=== PATIENT | male | born 1950 | race Caucasian/White ===

== ENCOUNTER 2021-01-19 19:23 | Emergency (ER) | payer BC, MEDICARE ==
--- NOTE | 2021-01-19 20:12 | EDM.PDOC ---
ED HPI GENERAL MEDICAL PROBLEM - General Chief Complaint: General Stated Complaint: MEDICAL [facility]IA [facility] Time Seen by Provider: 01/19/21 20:03 Source of Information: Reports: Patient, EMS, RN Notes Reviewed History Limitations: Reports: No Limitations - History of Present Illness INITIAL COMMENTS - FREE TEXT/NARRATIVE: 70-year-old gentleman presents emergency department day via EMS services for increasing weakness. He states he been weak for the last couple months progressively getting worse over the last 2 days it is gotten significantly worse he fell today was unable to stand back up he was on the ground for for 5 hours. He denies any fevers nausea vomiting shortness of breath or chest pain. States he did have appointment with his primary care early in November states at lisandro t time he felt pretty good lab work was done and nothing was revealing at that time. - Related Data Allergies Allergy/AdvReac Type Severity Reaction Status Date / Time No Known Allergies Allergy Verified 01/19/21 19:39 Home Meds: Home Meds Aspirin [Low Dose Aspirin EC] 1 tab PO DAILY 04/08/17 [History] Fluticasone Propionate [Flovent] 2 spray ANNA DAILY 04/08/17 [History] Metoprolol Tartrate [Lopressor] 1 tab PO BID 04/08/17 [History] Triamcinolone Acetonide [Kenalog 0.1% Crm] 1 appful TOP TID 04/08/17 [History] allopurinoL [Zyloprim] 1 tab PO DAILY 04/08/17 [History] atorvaSTATin [Lipitor] 1 tab PO BEDTIME 04/08/17 [History] metFORMIN [Glucophage XR] 1 tab PO BID 04/08/17 [History] Albuterol Sulfate [Proair Hfa] 1 - 2 dose INH ASDIRECTED PRN 04/26/18 [History] Albuterol/Ipratropium [DuoNeb 3.0-0.5 MG/3 ML] 1 dose INH BID 04/26/18 [History] Budesonide [Pulmicort] 1 dose INH BID 04/26/18 [History] Furosemide [Lasix] 1 tab PO DAILY 04/26/18 [History] Aspirin [Adult Low Dose Aspirin EC] 81 mg PO DAILY 01/19/21 [History] Past Medical History HEENT History: Reports: Hard of Hearing, Impaired Vision Cardiovascular History: Reports: Heart Failure, High Cholesterol, Hypertension Respiratory History: Reports: COPD Musculoskeletal History: Reports: Gout Endocrine/Metabolic History: Reports: Diabetes, Type II, Obesity/BMI 30+ - Infectious Disease History Infectious Disease History: Reports: Chicken Pox, Measles, Mumps - Past Surgical History GI Surgical History: Reports: Cholecystectomy, Colonoscopy Social & Family History - Family History Family Medical History: No Pertinent Family History - Tobacco Use Tobacco Use Status *Q: Current Every Day Tobacco User Years of Tobacco use: 50 Packs/Tins Daily: 1 - Caffeine Use Caffeine Use: Reports: Coffee - Alcohol Use Days Per Week of Alcohol Use: 7 Number of Drinks Per Day: 3 Total Drinks Per Week: 21 - Recreational Drug Use Recreational Drug Use: No ED ROS GENERAL - Review of Systems Review Of Systems: See Below Constitutional: Reports: Malaise, Weakness, Fatigue, Other (Falling at home). Denies: Fever, Chills HEENT: Reports: No Symptoms Respiratory: Reports: No Symptoms Cardiovascular: Reports: No Symptoms GI/Abdominal: Reports: No Symptoms : Reports: No Symptoms Musculoskeletal: Reports: No Symptoms Skin: Reports: Wound Neurological: Reports: No Symptoms ED EXAM, GENERAL - Physical Exam Exam: See Below Free Text/Narrative:: Full range of motion of the right elbow radial pulses +2 there is a small skin tear approximately 1 cm in size appreciated on the left elbow Exam Limited By: No Limitations General Appearance: Alert, WD/WN, No Apparent Distress Throat/Mouth: Normal Inspection, Normal Lips, Normal Teeth, Normal Gums, Normal Oropharynx, Normal Voice, No Airway Compromise Head: Atraumatic, Normocephalic Neck: Normal Inspection, Supple, Non-Tender, Full Range of Motion Respiratory/Chest: No Respiratory Distress, Lungs Clear, No Accessory Muscle Use, Chest Non-Tender Cardiovascular: Regular Rate, Rhythm, No Murmur GI/Abdominal: Normal Bowel Sounds, Soft, Non-Tender Course - Vital Signs Last Recorded V/S: Last Vital Signs Temp 96.5 F L 01/19/21 19:43 Pulse 103 H 01/20/21 01:08 Resp 24 H 01/20/21 01:08 BP 121/63 01/20/21 01:08 Pulse Ox 93 L 01/20/21 01:08 - Orders/Labs/Meds Orders: Active Orders 24 hr Category Date Time Status Insert Arroyo Catheter [Insert Urinary Catheter] [OM.PC] Care 01/19/21 22:15 Ordered Q24H Peripheral IV Care [RC] . DIRECTED Care 01/19/21 21:17 Active Urinary Catheter Assessment [RC] ASDIRECTED Care 01/19/21 22:13 Active Chest 1V Frontal [CR] Urgent Exams 01/19/21 20:07 Taken CULTURE BLOOD [BC] Urgent Lab 01/19/21 21:25 Received CULTURE BLOOD [BC] Urgent Lab 01/19/21 21:35 Received Sodium Chloride 0.9% [Normal Saline] 1,000 ml Med 01/19/21 21:30 Active IV ASDIRECTED Sodium Chloride 0.9% [Normal Saline] 85 ml Med 01/19/21 22:30 Active IV ASDIRECTED Sodium Chloride 0.9% [Saline Flush] Med 01/19/21 21:17 Active 10 ml FLUSH ASDIRECTED PRN Blood Culture x2 Reflex Set [OM.PC] Urgent Oth 01/19/21 21:20 Ordered Peripheral IV Insertion Adult [OM.PC] Urgent Oth 01/19/21 21:16 Ordered Medication Orders Sodium Chloride (Normal Saline) 1,000 mls @ 500 mls/hr IV ASDIRECTED NICHOLAS Last Infusion: 01/20/21 00:40 Dose: 150 mls/hr Documented by: Infusion: 01/19/21 22:00 Dose: 100 mls/hr Documented by: Admin: 01/19/21 21:47 Dose: 500 mls/hr Documented by: ERICK Sodium Chloride (Normal Saline) 85 mls @ 3.5 mls/sec IV ASDIRECTED NICHOLAS Last Admin: 01/19/21 23:18 Dose: 3.5 mls/sec Documented by: PAPA Sodium Chloride (Sodium Chloride 0.9% 10 Ml Syringe) 10 ml FLUSH ASDIRECTED PRN PRN Reason: Keep Vein Open Last Admin: 01/19/21 21:47 Dose: 10 ml Documented by: ERICK Labs: Laboratory Tests 01/19/21 01/19/21 01/19/21 Range/Units 20:18 20:18 20:21 WBC (4.5-11.0) K/uL RBC (4.30-5.90) M/uL Hgb (12.0-15.0) g/dL Hct (40.0-54.0) % MCV (80-98) fL MCH (27-31) pg MCHC (32-36) % Plt Count (150-400) K/uL Neut % (Auto) (36-66) % Lymph % (Auto) (24-44) % [place] % (Auto) (2-6) % Eos % (Auto) (2-4) % Baso % (Auto) (0-1) % Sodium (140-148) mmol/L Potassium (3.6-5.2) mmol/L Chloride (100-108) mmol/L Carbon Dioxide (21-32) mmol/L Anion Gap (5.0-14.0) mmol/L BUN (7-18) mg/dL Creatinine (0.8-1.3) mg/dL Est Cr Clr Drug Dosing mL/min Estimated GFR (MDRD) (>60) Glucose (74-106) mg/dL Lactic Acid (0.4-2.0) mmol/L Calcium (8.5-10.1) mg/dL Total Bilirubin (0.2-1.0) mg/dL AST (15-37) U/L ALT (12-78) U/L Alkaline Phosphatase (46-116) U/L Ammonia (11-32) umol/L Creatine Kinase 894 H (39-308) U/L Troponin I (0.000-0.056) ng/mL C-Reactive Protein 2.70 H (0.0-0.3) mg/dL Total Protein (6.4-8.2) g/dL Albumin (3.4-5.0) g/dL Globulin (2.3-3.5) g/dL Albumin/Globulin Ratio (1.2-2.2) Lipase (73-393) U/L Procalcitonin 0.08 ng/mL TSH, Ultra Sensitive (0.358-3.740) uIU/mL Urine Color (YELLOW) Urine Appearance (CLEAR) Urine pH (5.0-8.0) Ur Specific [place] (1.008-1.030) Urine Protein (NEGATIVE) mg/dL Urine Glucose (UA) (NEGATIVE) mg/dL Urine Ketones (NEGATIVE) mg/dL Urine Occult Blood (NEGATIVE) Urine Nitrite (NEGATIVE) Urine Bilirubin (NEGATIVE) Urine Urobilinogen (0.2-1.0) EU/dL Ur Leukocyte Esterase (NEGATIVE) Urine RBC (0-5) Urine WBC (0-5) Ur Epithelial Cells Amorphous Sediment Urine Bacteria Urine Mucus Ethyl Alcohol mg/dL SARS CoV-2 RNA Rapid STEVE 01/19/21 01/19/21 01/19/21 Range/Units 20:21 20:21 20:21 WBC 16.0 H (4.5-11.0) K/uL RBC 3.81 L (4.30-5.90) M/uL Hgb 13.3 (12.0-15.0) g/dL Hct 35.4 L (40.0-54.0) % MCV 93 (80-98) fL MCH 35 H (27-31) pg MCHC 38 H (32-36) % Plt Count 182 (150-400) K/uL Neut % (Auto) 87.3 H (36-66) % Lymph % (Auto) 3.4 L (24-44) % [place] % (Auto) 8.9 H (2-6) % Eos % (Auto) 0.3 L (2-4) % Baso % (Auto) 0.1 (0-1) % Sodium 116 L* (140-148) mmol/L Potassium 3.2 L (3.6-5.2) mmol/L Chloride 74 L (100-108) mmol/L Carbon Dioxide 29 (21-32) mmol/L Anion Gap 16.2 H (5.0-14.0) mmol/L BUN 14 (7-18) mg/dL Creatinine 0.8 (0.8-1.3) mg/dL Est Cr Clr Drug Dosing 92.96 mL/min Estimated GFR (MDRD) > 60 (>60) Glucose 101 (74-106) mg/dL Lactic Acid (0.4-2.0) mmol/L Calcium 8.3 L (8.5-10.1) mg/dL Total Bilirubin 1.7 H (0.2-1.0) mg/dL AST 77 H (15-37) U/L ALT 46 (12-78) U/L Alkaline Phosphatase 101 (46-116) U/L Ammonia 12 (11-32) umol/L Creatine Kinase (39-308) U/L Troponin I < 0.017 (0.000-0.056) ng/mL C-Reactive Protein (0.0-0.3) mg/dL Total Protein 5.6 L (6.4-8.2) g/dL Albumin 2.9 L (3.4-5.0) g/dL Globulin 2.7 (2.3-3.5) g/dL Albumin/Globulin Ratio 1.1 L (1.2-2.2) Lipase 99 (73-393) U/L Procalcitonin ng/mL TSH, Ultra Sensitive 0.742 (0.358-3.740) uIU/mL Urine Color (YELLOW) Urine Appearance (CLEAR) Urine pH (5.0-8.0) Ur Specific [place] (1.008-1.030) Urine Protein (NEGATIVE) mg/dL Urine Glucose (UA) (NEGATIVE) mg/dL Urine Ketones (NEGATIVE) mg/dL Urine Occult Blood (NEGATIVE) Urine Nitrite (NEGATIVE) Urine Bilirubin (NEGATIVE) Urine Urobilinogen (0.2-1.0) EU/dL Ur Leukocyte Esterase (NEGATIVE) Urine RBC (0-5) Urine WBC (0-5) Ur Epithelial Cells Amorphous Sediment Urine Bacteria Urine Mucus Ethyl Alcohol mg/dL SARS CoV-2 RNA Rapid STEVE 01/19/21 01/19/21 01/19/21 Range/Units 20:21 20:21 22:25 WBC (4.5-11.0) K/uL RBC (4.30-5.90) M/uL Hgb (12.0-15.0) g/dL Hct (40.0-54.0) % MCV (80-98) fL MCH (27-31) pg MCHC (32-36) % Plt Count (150-400) K/uL Neut % (Auto) (36-66) % Lymph % (Auto) (24-44) % [place] % (Auto) (2-6) % Eos % (Auto) (2-4) % Baso % (Auto) (0-1) % Sodium 116 L* (140-148) mmol/L Potassium 3.4 L (3.6-5.2) mmol/L Chloride 74 L (100-108) mmol/L Carbon Dioxide 28 (21-32) mmol/L Anion Gap 17.4 H (5.0-14.0) mmol/L BUN 14 (7-18) mg/dL Creatinine 0.8 (0.8-1.3) mg/dL Est Cr Clr Drug Dosing 92.96 mL/min Estimated GFR (MDRD) > 60 (>60) Glucose 108 H (74-106) mg/dL Lactic Acid 4.8 H (0.4-2.0) mmol/L Calcium 8.1 L (8.5-10.1) mg/dL Total Bilirubin (0.2-1.0) mg/dL AST (15-37) U/L ALT (12-78) U/L Alkaline Phosphatase (46-116) U/L Ammonia (11-32) umol/L Creatine Kinase (39-308) U/L Troponin I (0.000-0.056) ng/mL C-Reactive Protein (0.0-0.3) mg/dL Total Protein (6.4-8.2) g/dL Albumin (3.4-5.0) g/dL Globulin (2.3-3.5) g/dL Albumin/Globulin Ratio (1.2-2.2) Lipase (73-393) U/L Procalcitonin ng/mL TSH, Ultra Sensitive (0.358-3.740) uIU/mL Urine Color (YELLOW) Urine Appearance (CLEAR) Urine pH (5.0-8.0) Ur Specific [place] (1.008-1.030) Urine Protein (NEGATIVE) mg/dL Urine Glucose (UA) (NEGATIVE) mg/dL Urine Ketones (NEGATIVE) mg/dL Urine Occult Blood (NEGATIVE) Urine Nitrite (NEGATIVE) Urine Bilirubin (NEGATIVE) Urine Urobilinogen (0.2-1.0) EU/dL Ur Leukocyte Esterase (NEGATIVE) Urine RBC (0-5) Urine WBC (0-5) Ur Epithelial Cells Amorphous Sediment Urine Bacteria Urine Mucus Ethyl Alcohol 33 mg/dL SARS CoV-2 RNA Rapid STEVE 01/19/21 01/19/21 Range/Units 22:35 Unknown WBC (4.5-11.0) K/uL RBC (4.30-5.90) M/uL Hgb (12.0-15.0) g/dL Hct (40.0-54.0) % MCV (80-98) fL MCH (27-31) pg MCHC (32-36) % Plt Count (150-400) K/uL Neut % (Auto) (36-66) % Lymph % (Auto) (24-44) % [place] % (Auto) (2-6) % Eos % (Auto) (2-4) % Baso % (Auto) (0-1) % Sodium (140-148) mmol/L Potassium (3.6-5.2) mmol/L Chloride (100-108) mmol/L Carbon Dioxide (21-32) mmol/L Anion Gap (5.0-14.0) mmol/L BUN (7-18) mg/dL Creatinine (0.8-1.3) mg/dL Est Cr Clr Drug Dosing mL/min Estimated GFR (MDRD) (>60) Glucose (74-106) mg/dL Lactic Acid (0.4-2.0) mmol/L Calcium (8.5-10.1) mg/dL Total Bilirubin (0.2-1.0) mg/dL AST (15-37) U/L ALT (12-78) U/L Alkaline Phosphatase (46-116) U/L Ammonia (11-32) umol/L Creatine Kinase (39-308) U/L Troponin I (0.000-0.056) ng/mL C-Reactive Protein (0.0-0.3) mg/dL Total Protein (6.4-8.2) g/dL Albumin (3.4-5.0) g/dL Globulin (2.3-3.5) g/dL Albumin/Globulin Ratio (1.2-2.2) Lipase (73-393) U/L Procalcitonin ng/mL TSH, Ultra Sensitive (0.358-3.740) uIU/mL Urine Color Yellow (YELLOW) Urine Appearance Slightly cloudy A (CLEAR) Urine pH 5.5 (5.0-8.0) Ur Specific [place] 1.015 (1.008-1.030) Urine Protein Trace H (NEGATIVE) mg/dL Urine Glucose (UA) Negative (NEGATIVE) mg/dL Urine Ketones 80 H (NEGATIVE) mg/dL Urine Occult Blood Trace-lysed H (NEGATIVE) Urine Nitrite Negative (NEGATIVE) Urine Bilirubin Small H (NEGATIVE) Urine Urobilinogen 1.0 (0.2-1.0) EU/dL Ur Leukocyte Esterase Negative (NEGATIVE) Urine RBC 0-5 (0-5) Urine WBC 0-5 (0-5) Ur Epithelial Cells Rare Amorphous Sediment Not seen Urine Bacteria Moderate Urine Mucus Moderate Ethyl Alcohol mg/dL SARS CoV-2 RNA Rapid STEVE Negative Meds: Medications Generic Name Dose Route Start Last Admin Trade Name Arq PRN Reason Stop Dose Admin Sodium Chloride 1,000 mls @ 500 mls/hr 01/19/21 21:30 01/20/21 00:40 Normal Saline IV 150 mls/hr ASDIRECTED NICHOLAS Infusion Sodium Chloride 85 mls @ 3.5 mls/sec 01/19/21 22:30 01/19/21 23:18 Normal Saline IV 3.5 mls/sec ASDIRECTED NICHOLAS Administration Sodium Chloride 10 ml 01/19/21 21:17 01/19/21 21:47 Sodium Chloride 0.9% 10 Ml Syringe FLUSH 10 ml ASDIRECTED PRN Administration Keep Vein Open Discontinued Medications Generic Name Dose Route Start Last Admin Trade Name Arq PRN Reason Stop Dose Admin Iopamidol 150 ml 01/19/21 22:25 01/19/21 23:17 Iopamidol 612 Mg/Ml 500 Ml Multipack Bottle IV 01/19/21 22:26 150 ml ONETIME ONE Administration Sodium Chloride 10 ml 01/19/21 22:25 01/19/21 23:18 Sodium Chloride 0.9% 10 Ml Syringe FLUSH 01/19/21 22:26 10 ml ONETIME ONE Administration Departure - Departure Time of Disposition: 01:45 Disposition: DC/Tfer to Acute Hospital 02 Condition: Fair Clinical Impression: Hyponatremia - Discharge Information Referrals: Jono Flowers NP [Primary Care Provider] - Forms: ED Department Discharge Critical Care Note - Critical Care Note Total Time (mins): 35 Sepsis Event Note (ED) - Evaluation Sepsis Screening Result: No Definite Risk - Focused Exam Vital Signs: Vital Signs Temp Pulse Resp BP Pulse Ox 01/20/21 01:08 103 H 24 H 121/63 93 L 01/19/21 23:21 100 20 129/62 98 01/19/21 21:48 103 H 22 H 108/65 91 L 01/19/21 21:07 99 128/59 L 01/19/21 19:59 95 116/61 01/19/21 19:43 96.5 F L 89 16 131/57 L 96 01/19/21 19:28 96.5 F L 89 16 131/57 L 96 - My Orders Last 24 Hours: My Active Orders 01/19/21 20:07 Chest 1V Frontal [CR] Urgent 01/19/21 21:16 Peripheral IV Insertion Adult [OM.PC] Urgent 01/19/21 21:17 Peripheral IV Care [RC] . DIRECTED Sodium Chloride 0.9% [Saline Flush] 10 ml FLUSH ASDIRECTED PRN 01/19/21 21:20 Blood Culture x2 Reflex Set [OM.PC] Urgent 01/19/21 21:25 CULTURE BLOOD [BC] Urgent 01/19/21 21:30 Sodium Chloride 0.9% [Normal Saline] 1,000 ml IV ASDIRECTED 01/19/21 21:35 CULTURE BLOOD [BC] Urgent 01/19/21 22:13 Urinary Catheter Assessment [RC] ASDIRECTED 01/19/21 22:15 Insert Arroyo Catheter [Insert Urinary Catheter] [OM.PC] Q24H 01/19/21 22:30 Sodium Chloride 0.9% [Normal Saline] 85 ml IV ASDIRECTED - Assessment/Plan Last 24 Hours: My Active Orders 01/19/21 20:07 Chest 1V Frontal [CR] Urgent 01/19/21 21:16 Peripheral IV Insertion Adult [OM.PC] Urgent 01/19/21 21:17 Peripheral IV Care [RC] . DIRECTED Sodium Chloride 0.9% [Saline Flush] 10 ml FLUSH ASDIRECTED PRN 01/19/21 21:20 Blood Culture x2 Reflex Set [OM.PC] Urgent 01/19/21 21:25 CULTURE BLOOD [BC] Urgent 01/19/21 21:30 Sodium Chloride 0.9% [Normal Saline] 1,000 ml IV ASDIRECTED 01/19/21 21:35 CULTURE BLOOD [BC] Urgent 01/19/21 22:13 Urinary Catheter Assessment [RC] ASDIRECTED 01/19/21 22:15 Insert Arroyo Catheter [Insert Urinary Catheter] [OM.PC] Q24H 01/19/21 22:30 Sodium Chloride 0.9% [Normal Saline] 85 ml IV ASDIRECTED Plan: Assessment Acuity = acute Site and laterality = weakness with severe hyponatremia Etiology = unknown Manifestations = none Location of injury = Home Lab values = WBC elevated 16.0 consistent leukocytosis, sodium low at 116 consistent with severe hyponatremia potassium low at 3.2 consistent hypokalemia lactic acid elevated 4.8 consistent lactic acidosis total bilirubin elevated 1.7 consistent with hyperbilirubinemia AST at 77 CK elevated 894 troponin was negative CRP elevated 2.7 thyroid normal 0.742 procalcitonin normal 0.48 urinalysis negative chest x-ray shows no acute process official read radiologist pending alcohol is at 33 blood cultures are pending Plan Called and discussed the case with emergency room physician and surgery scheduler at [facility] kindly excepted the patient in transport however recommended placement of Arroyo catheter normal saline 100 cc/h CT scan head chest abdomen and pelvis prior to transfer This note was dictated using [employer] voice recognition software please call with any questions on syntax or grammar.
[2021-01-19] MEDS ORDERED: Sodium Chloride 0.9% 10 ML Syringe FLUSH PRN (21:17)
[2021-01-19] MEDS ORDERED: Sodium Chloride 0.9% 1,000 ML IV SCH (21:30)
[2021-01-19] MEDS ORDERED: Iopamidol 612 MG/ML 500 ML Multipack Bottle IV ONE (22:25)
[2021-01-19] MEDS ORDERED: Sodium Chloride 0.9% 10 ML Syringe FLUSH ONE (22:25)
--- NOTE | 2021-01-20 01:01 | CRLCT ---
For Patients: As a result of the Century Cures Act, medical imaging exams and procedure reports are released immediately into your electronic medical record. You may view this report before your referring provider. If you have questions, please contact your health care provider. DATE: 01/19/2021 CLINICAL HISTORY: Patient with fall. TECHNIQUE: Standard CT scanning of the head was performed. COMPARISON: None FINDINGS: There is no intracranial hemorrhage. There is no territorial infarction. There are mild microangiopathic changes. There is diffuse parenchymal volume loss. There is no mass effect or midline shift. The calvarium is unremarkable. The orbits are unremarkable. The paranasal sinuses are unremarkable. The mastoid air cells are unremarkable. The soft tissues are unremarkable. IMPRESSION: 1. No intracranial hemorrhage or territorial infarction. 2. Mild microangiopathic changes and diffuse parenchymal volume loss. Please note that all CT scans at this facility use dose modulation, iterative reconstruction, and/or weight-based dosing when appropriate to reduce radiation dose to as low as reasonably achievable. Dictated by Marybel Ann MD @ 01/20/2021 12:59:[address] Marybel Ann @ Jan 20 2021 12:59AM
--- NOTE | 2021-01-20 01:22 | CRLCT ---
For Patients: As a result of the 21st Century Cures Act, medical imaging exams and procedure reports are released immediately into your electronic medical record. You may view this report before your referring provider. If you have questions, please contact your health care provider. INDICATION: FELL, ETOH CT CHEST, ABDOMEN, AND PELVIS WITH CONTRAST TECHNIQUE: Multidetector CT imaging was performed through the chest, abdomen, and pelvis following intravenous contrast administration using 150 mL Isovue-300. Coronal and sagittal reconstructions were generated. COMPARISON: None. FINDINGS: The exam is moderately limited by motion. Lungs and airways: Scattered mild fibrotic changes. No confluent infiltrates, suspicious nodules, or masses. Central airways are patent. Pleura and pleural spaces: No pleural effusions or pneumothorax. Heart and mediastinum: Normal heart size. No significant pericardial effusion. No pathologically enlarged mediastinal lymph nodes. Vascular structures: Normal caliber aorta without evidence of acute injury. Moderate aortoiliac atherosclerotic changes. Chest wall and axillae: Mild bilateral gynecomastia. No mass or axillary lymphadenopathy. Liver and spleen: Diffuse fatty infiltration of the liver. Unremarkable spleen. Gallbladder and bile ducts: Status post cholecystectomy. No biliary dilation identified. Pancreas, adrenals, and retroperitoneum: No pancreatic or adrenal mass. No pathologically enlarged lymph nodes identified in the abdomen or pelvis. Kidneys, ureters, and urinary bladder: No renal masses or hydronephrosis. Arroyo catheter extending into the urinary bladder, which is collapsed. Gastrointestinal tract and peritoneum: Normal caliber bowel without wall thickening or obstruction. Multiple sigmoid colon diverticula without evidence of diverticulitis. No free air, abscess, or significant free fluid. Reproductive organs: No pelvic masses. Bones: Chronic-appearing mild to moderate compression fracture of T12. Old healed fracture of the right 11th rib. No definite acute fracture. Bridging ossification throughout the mid and lower thoracic spine and ankylosis of the sacroiliac joints bilaterally; and closing spondylitis is favored although diffuse idiopathic skeletal hyperostosis is also possible. IMPRESSION: 1. No acute traumatic intrathoracic or intraabdominal abnormality identified. No acute fractures are seen. 2. Nonacute findings as detailed above. CHAI BRASHER MD [employer] [employer] Dictated by Drew rBasher MD @ 01/20/2021 1:19:25 AM Please note that all CT scans at this facility use dose modulation, iterative reconstruction, and/or weight-based dosing when appropriate to reduce radiation dose to as low as reasonably achievable. Dictated by: Drew Brasher MD @ 01/20/2021 01:20:32 (Electronically Signed)
[2021-01-20 01:52] VITALS: BP 122/60; PULSE 99
--- NOTE | 2021-01-21 09:03 | CR ---
CHEST: Portable 01/19/2021 at 8:30 PM CLINICAL HISTORY:Rhonchi on the right COMPARISON:None available FINDINGS: The heart size, pulmonary vascularity and hilar structures are normal. No infiltrate effusion or pneumothorax is seen. There are atherosclerotic changes in the aorta. There is some prominence in lung markings on the right. Some of this may be chronic IMPRESSION: There is some increase in the right lower lung markings. Some of this may be chronic. Superimposed pneumonia is felt less likely but not excluded
== END 2021-01-20 02:29 ==
LOC: JP.ED 19:23
DX: E87.1 Hypo-osmolality and hyponatremia (principal); I11.0 Hypertensive heart disease with heart failure; I50.9 Heart failure, unspecified; E78.00 Pure hypercholesterolemia, unspecified; J44.9 Chronic obstructive pulmonary disease, unspecified; M10.9 Gout, unspecified; E66.9 Obesity, unspecified; Z68.30 Body mass index [BMI] 30.0-30.9, adult; Z79.82 Long term (current) use of aspirin; Z79.899 Other long term (current) drug therapy; Z72.0 Tobacco use; Z79.84 Long term (current) use of oral hypoglycemic drugs; Z20.822 Contact with and (suspected) exposure to COVID-19
CPT/HCPCS: 36415; 51702; 70450; 71045; 71260; 74177; 80048; 80053; 80307; 81001; 82140; 82550; 83605; 83690; 84145; 84443; 84484; 85025; 86140; 87040; 99285; J7030; Q9967; U0002

== ENCOUNTER 2021-03-26 21:28 | Emergency (ER) | payer MEDICARE ==
[2021-03-26] MEDS ORDERED: Sodium Chloride 0.9% 10 ML Syringe FLUSH PRN (21:31)
--- NOTE | 2021-03-26 21:39 | EDM.PDOC ---
ED HPI GENERAL MEDICAL PROBLEM - General Chief Complaint: General Stated Complaint: FALL VIA NORTH Time Seen by Provider: 03/26/21 21:28 Source of Information: Reports: Patient, EMS History Limitations: Reports: No Limitations - History of Present Illness INITIAL COMMENTS - FREE TEXT/NARRATIVE: Is a 70-year-old male who was brought into the ED by [facility] for evaluation after being down on the floor for over an hour. Patient has had increased episodes of generalized weakness and falls and has been hospitalized last month for alcohol abuse and hyponatremia causing generalized weakness. The patient states that today he is consumed 2-3 Truly's and that he fell on the floor and could not get back up causing him to activate his medical alert pendant. EMS reported when the got there he was vitally stable but had a blood sugar of 67. They rechecked him after loading him in the ambulance and he had dropped to 54. He received 15 g of oral glucose without much change in his blood glucose. Patient is slurring his words but does not appear in any acute distress. The patient reports that he has not eaten in the last 3 to 4 days because he is lost his appetite and has lost his sense of taste or smell for about the last week. He does not report having a fever. He has a history of COPD and always has a cough. It is unclear whether he still smokes or not. He is vaccinated for Covid having gotten his last dose of the vaccine in July 2020. - Related Data Allergies Allergy/AdvReac Type Severity Reaction Status Date / Time No Known Allergies Allergy Verified 03/26/21 21:33 Home Meds: Home Meds Fluticasone Propionate [Flovent] 2 spray ANNA DAILY 04/08/17 [History] Metoprolol Tartrate [Lopressor] 1 tab PO BID 04/08/17 [History] Triamcinolone Acetonide [Kenalog 0.1% Crm] 1 appful TOP TID 04/08/17 [History] allopurinoL [Zyloprim] 1 tab PO DAILY 04/08/17 [History] atorvaSTATin [Lipitor] 1 tab PO BEDTIME 04/08/17 [History] metFORMIN [Glucophage XR] 1 tab PO BID 04/08/17 [History] Albuterol Sulfate [Proair Hfa] 1 - 2 dose INH ASDIRECTED PRN 04/26/18 [History] Albuterol/Ipratropium [DuoNeb 3.0-0.5 MG/3 ML] 1 dose INH BID 04/26/18 [History] Budesonide [Pulmicort] 1 dose INH BID 04/26/18 [History] Furosemide [Lasix] 1 tab PO DAILY 04/26/18 [History] Aspirin [Adult Low Dose Aspirin EC] 81 mg PO DAILY 01/19/21 [History] Past Medical History HEENT History: Reports: Hard of Hearing, Impaired Vision Cardiovascular History: Reports: Heart Failure, High Cholesterol, Hypertension Respiratory History: Reports: COPD Musculoskeletal History: Reports: Gout Endocrine/Metabolic History: Reports: Diabetes, Type II, Obesity/BMI 30+ - Infectious Disease History Infectious Disease History: Reports: Chicken Pox, Measles, Mumps - Past Surgical History GI Surgical History: Reports: Cholecystectomy, Colonoscopy Social & Family History - Family History Family Medical History: No Pertinent Family History - Caffeine Use Caffeine Use: Reports: Coffee ED ROS GENERAL - Review of Systems Review Of Systems: See Below Constitutional: Reports: Malaise, Weakness (Generalized weakness), Decreased Appetite HEENT: Reports: Other (Loss of taste and smell for 1 week) Respiratory: Reports: Shortness of Breath, Cough (Chronic due to COPD) Cardiovascular: Reports: Edema Endocrine: Reports: Fatigue, Low Glucose GI/Abdominal: Reports: Anorexia, Decreased Appetite : Reports: No Symptoms Musculoskeletal: Reports: No Symptoms Skin: Reports: Erythema (Chronic venous stasis changes in bilateral lower extremities), Other (Lymphedema in bilateral lower extremities) Neurological: Reports: Difficulty Walking, Weakness (Generalized weakness) Psychiatric: Reports: No Symptoms Hematologic/Lymphatic: Reports: No Symptoms Immunologic: Reports: No Symptoms ED EXAM, GENERAL - Physical Exam Exam: See Below Exam Limited By: No Limitations General Appearance: Alert, Anxious, Mild Distress, Obese Eye Exam: Bilateral Eye: EOMI, PERRL Throat/Mouth: Normal Oropharynx, Normal Voice, No Airway Compromise Head: Atraumatic, Normocephalic Neck: Normal Inspection, Supple, Non-Tender, Full Range of Motion. No: Lymphadenopathy (R), Lymphadenopathy (L) Respiratory/Chest: No Accessory Muscle Use, Chest Non-Tender, Decreased Breath Sounds (Bilateral lower lung diminished breath sounds), Rhonchi (Scattered bilateral rhonchi), Wheezing (Scant inspiratory and expiratory wheezes), Prolonged Expiration. No: Retractions Cardiovascular: Normal Peripheral Pulses, Regular Rate, Rhythm, No Murmur Peripheral Pulses: 2+: Radial (L), Radial (R) GI/Abdominal: Normal Bowel Sounds, Soft, Non-Tender Back Exam: Normal Inspection, Full Range of Motion Extremities: Normal Range of Motion, Pedal Edema (3+ bilateral pedal edema to the knees with chronic venous stasis dermatitis changes and lymphedema.) Neurological: Alert, Oriented, Normal Cognition, No Motor/Sensory Deficits Psychiatric: Normal Affect, Normal Mood Skin Exam: Erythema (Lateral lower extremity lymphedema and venous stasis dermatitis changes) #1 Interpretation EKG Date: 03/26/21 Time: 21:24 Rhythm: NSR Rate (Beats/Min): 76 P-Wave: Present (Prolonged IL interval at 218 ms) QRS: Normal (Nonspecific ventricular conduction delay with low voltage throug hout the limb leads and poor R wave progression in the precordial leads) ST-T: Normal QT: Prolonged Comparison: NA - No Prior EKG Course - Vital Signs Last Recorded V/S: Last Vital Signs Temp 35.4 C L 03/26/21 21:30 Pulse 89 03/27/21 06:16 Resp 20 03/27/21 05:18 BP 115/60 03/27/21 06:16 Pulse Ox 94 L 03/27/21 06:16 - Orders/Labs/Meds Orders: Active Orders 24 hr Category Date Time Status Sodium Chloride 0.9% [Normal Saline] 1,000 ml Med 03/26/21 23:45 Active IV ASDIRECTED Sodium Chloride 0.9% [Normal Saline] 1,000 ml Med 03/27/21 02:30 Active IV ASDIRECTED Sodium Chloride 0.9% [Saline Flush] Med 03/26/21 21:31 Active 10 ml FLUSH ASDIRECTED PRN Saline Lock Insert [OM.PC] Routine Oth 03/26/21 21:31 Ordered EKG 12 Lead [EK] Routine Ther 03/26/21 21:29 Ordered Medication Orders Sodium Chloride (Normal Saline) 1,000 mls @ 999 mls/hr IV ASDIRECTED NICHOLAS Last Admin: 03/27/21 00:16 Dose: 999 mls/hr Documented by: DOMENICO Sodium Chloride (Normal Saline) 1,000 mls @ 500 mls/hr IV ASDIRECTED NICHOLAS Last Admin: 03/27/21 02:24 Dose: 500 mls/hr Documented by: DOMENICO Sodium Chloride (Sodium Chloride 0.9% 10 Ml Syringe) 10 ml FLUSH ASDIRECTED PRN PRN Reason: Keep Vein Open Last Admin: 03/26/21 21:41 Dose: 10 ml Documented by: DOMENICO Labs: Laboratory Tests 03/26/21 03/26/21 03/26/21 Range/Units 21:29 21:39 21:50 WBC 9.9 (4.5-11.0) K/uL RBC 4.14 L (4.30-5.90) M/uL Hgb 14.1 (12.0-15.0) g/dL Hct 39.7 L (40.0-54.0) % MCV 96 (80-98) fL MCH 34 H (27-31) pg MCHC 36 (32-36) % Plt Count 199 (150-400) K/uL Neut % (Auto) 76.8 H (36-66) % Lymph % (Auto) 15.5 L (24-44) % Rowan % (Auto) 6.6 H (2-6) % Eos % (Auto) 0.9 L (2-4) % Baso % (Auto) 0.2 (0-1) % PT 10.4 (9.2-10.6) sec INR 1.0 D-Dimer, Quantitative (0.0-500.0) ng/mL Sodium (140-148) mmol/L Potassium (3.6-5.2) mmol/L Chloride (100-108) mmol/L Carbon Dioxide (21-32) mmol/L Anion Gap (5.0-14.0) mmol/L BUN (7-18) mg/dL Creatinine (0.8-1.3) mg/dL Est Cr Clr Drug Dosing mL/min Estimated GFR (MDRD) (>60) Glucose (74-106) mg/dL Lactic Acid (0.4-2.0) mmol/L Calcium (8.5-10.1) mg/dL Ferritin (8-388) ng/ml Total Bilirubin (0.2-1.0) mg/dL AST (15-37) U/L ALT (12-78) U/L Alkaline Phosphatase (46-116) U/L Lactate Dehydrogenase (85-227) U/L Creatine Kinase (39-308) U/L Troponin I (0.000-0.056) ng/mL C-Reactive Protein (0.0-0.3) mg/dL NT-Pro-B Natriuret Pep (5-125) pg/mL Total Protein (6.4-8.2) g/dL Albumin (3.4-5.0) g/dL Globulin (2.3-3.5) g/dL Albumin/Globulin Ratio (1.2-2.2) Procalcitonin ng/mL Urine Color (YELLOW) Urine Appearance (CLEAR) Urine pH (5.0-8.0) Ur Specific Linden (1.008-1.030) Urine Protein (NEGATIVE) mg/dL Urine Glucose (UA) (NEGATIVE) mg/dL Urine Ketones (NEGATIVE) mg/dL Urine Occult Blood (NEGATIVE) Urine Nitrite (NEGATIVE) Urine Bilirubin (NEGATIVE) Urine Urobilinogen (0.2-1.0) EU/dL Ur Leukocyte Esterase (NEGATIVE) Urine RBC (0-5) Urine WBC (0-5) Ur Epithelial Cells Amorphous Sediment Urine Bacteria Urine Mucus Ur Random Sodium (20-110) mmol/L Ur Random Potassium (12-62) mmol/L Ethyl Alcohol mg/dL SARS-CoV-2 RNA (STEVE) Negative (NEGATIVE) 03/26/21 03/26/21 03/26/21 Range/Units 21:50 21:50 21:50 WBC (4.5-11.0) K/uL RBC (4.30-5.90) M/uL Hgb (12.0-15.0) g/dL Hct (40.0-54.0) % MCV (80-98) fL MCH (27-31) pg MCHC (32-36) % Plt Count (150-400) K/uL Neut % (Auto) (36-66) % Lymph % (Auto) (24-44) % Rowan % (Auto) (2-6) % Eos % (Auto) (2-4) % Baso % (Auto) (0-1) % PT (9.2-10.6) sec INR D-Dimer, Quantitative 1464.11 H (0.0-500.0) ng/mL Sodium 123 L (140-148) mmol/L Potassium 3.8 (3.6-5.2) mmol/L Chloride 79 L (100-108) mmol/L Carbon Dioxide 28 (21-32) mmol/L Anion Gap 19.8 H (5.0-14.0) mmol/L BUN 14 (7-18) mg/dL Creatinine 0.7 L (0.8-1.3) mg/dL Est Cr Clr Drug Dosing 106.24 mL/min Estimated GFR (MDRD) > 60 (>60) Glucose 62 L (74-106) mg/dL Lactic Acid 5.3 H (0.4-2.0) mmol/L Calcium 8.7 (8.5-10.1) mg/dL Ferritin 459 H (8-388) ng/ml Total Bilirubin 1.0 (0.2-1.0) mg/dL AST 54 H (15-37) U/L ALT 34 (12-78) U/L Alkaline Phosphatase 98 (46-116) U/L Lactate Dehydrogenase 147 (85-227) U/L Creatine Kinase (39-308) U/L Troponin I < 0.017 (0.000-0.056) ng/mL C-Reactive Protein 6.11 H (0.0-0.3) mg/dL NT-Pro-B Natriuret Pep 378 H (5-125) pg/mL Total Protein 6.2 L (6.4-8.2) g/dL Albumin 3.6 (3.4-5.0) g/dL Globulin 2.6 (2.3-3.5) g/dL Albumin/Globulin Ratio 1.4 (1.2-2.2) Procalcitonin ng/mL Urine Color (YELLOW) Urine Appearance (CLEAR) Urine pH (5.0-8.0) Ur Specific Linden (1.008-1.030) Urine Protein (NEGATIVE) mg/dL Urine Glucose (UA) (NEGATIVE) mg/dL Urine Ketones (NEGATIVE) mg/dL Urine Occult Blood (NEGATIVE) Urine Nitrite (NEGATIVE) Urine Bilirubin (NEGATIVE) Urine Urobilinogen (0.2-1.0) EU/dL Ur Leukocyte Esterase (NEGATIVE) Urine RBC (0-5) Urine WBC (0-5) Ur Epithelial Cells Amorphous Sediment Urine Bacteria Urine Mucus Ur Random Sodium (20-110) mmol/L Ur Random Potassium (12-62) mmol/L Ethyl Alcohol mg/dL SARS-CoV-2 RNA (STEVE) (NEGATIVE) 03/26/21 03/26/21 03/26/21 Range/Units 21:50 21:50 21:50 WBC (4.5-11.0) K/uL RBC (4.30-5.90) M/uL Hgb (12.0-15.0) g/dL Hct (40.0-54.0) % MCV (80-98) fL MCH (27-31) pg MCHC (32-36) % Plt Count (150-400) K/uL Neut % (Auto) (36-66) % Lymph % (Auto) (24-44) % Rowan % (Auto) (2-6) % Eos % (Auto) (2-4) % Baso % (Auto) (0-1) % PT (9.2-10.6) sec INR D-Dimer, Quantitative (0.0-500.0) ng/mL Sodium (140-148) mmol/L Potassium (3.6-5.2) mmol/L Chloride (100-108) mmol/L Carbon Dioxide (21-32) mmol/L Anion Gap (5.0-14.0) mmol/L BUN (7-18) mg/dL Creatinine (0.8-1.3) mg/dL Est Cr Clr Drug Dosing mL/min Estimated GFR (MDRD) (>60) Glucose (74-106) mg/dL Lactic Acid (0.4-2.0) mmol/L Calcium (8.5-10.1) mg/dL Ferritin (8-388) ng/ml Total Bilirubin (0.2-1.0) mg/dL AST (15-37) U/L ALT (12-78) U/L Alkaline Phosphatase (46-116) U/L Lactate Dehydrogenase (85-227) U/L Creatine Kinase 72 (39-308) U/L Troponin I (0.000-0.056) ng/mL C-Reactive Protein (0.0-0.3) mg/dL NT-Pro-B Natriuret Pep (5-125) pg/mL Total Protein (6.4-8.2) g/dL Albumin (3.4-5.0) g/dL Globulin (2.3-3.5) g/dL Albumin/Globulin Ratio (1.2-2.2) Procalcitonin < 0.05 ng/mL Urine Color (YELLOW) Urine Appearance (CLEAR) Urine pH (5.0-8.0) Ur Specific Linden (1.008-1.030) Urine Protein (NEGATIVE) mg/dL Urine Glucose (UA) (NEGATIVE) mg/dL Urine Ketones (NEGATIVE) mg/dL Urine Occult Blood (NEGATIVE) Urine Nitrite (NEGATIVE) Urine Bilirubin (NEGATIVE) Urine Urobilinogen (0.2-1.0) EU/dL Ur Leukocyte Esterase (NEGATIVE) Urine RBC (0-5) Urine WBC (0-5) Ur Epithelial Cells Amorphous Sediment Urine Bacteria Urine Mucus Ur Random Sodium (20-110) mmol/L Ur Random Potassium (12-62) mmol/L Ethyl Alcohol 258 mg/dL SARS-CoV-2 RNA (STEVE) (NEGATIVE) 03/26/21 03/26/21 03/27/21 Range/Units 22:44 22:44 05:55 WBC (4.5-11.0) K/uL RBC (4.30-5.90) M/uL Hgb (12.0-15.0) g/dL Hct (40.0-54.0) % MCV (80-98) fL MCH (27-31) pg MCHC (32-36) % Plt Count (150-400) K/uL Neut % (Auto) (36-66) % Lymph % (Auto) (24-44) % Rowan % (Auto) (2-6) % Eos % (Auto) (2-4) % Baso % (Auto) (0-1) % PT (9.2-10.6) sec INR D-Dimer, Quantitative (0.0-500.0) ng/mL Sodium 130 L (140-148) mmol/L Potassium 3.4 L (3.6-5.2) mmol/L Chloride 87 L (100-108) mmol/L Carbon Dioxide 31 (21-32) mmol/L Anion Gap 15.4 H (5.0-14.0) mmol/L BUN 13 (7-18) mg/dL Creatinine 0.7 L (0.8-1.3) mg/dL Est Cr Clr Drug Dosing 106.24 mL/min Estimated GFR (MDRD) > 60 (>60) Glucose 54 L (74-106) mg/dL Lactic Acid (0.4-2.0) mmol/L Calcium 8.1 L (8.5-10.1) mg/dL Ferritin (8-388) ng/ml Total Bilirubin (0.2-1.0) mg/dL AST (15-37) U/L ALT (12-78) U/L Alkaline Phosphatase (46-116) U/L Lactate Dehydrogenase (85-227) U/L Creatine Kinase (39-308) U/L Troponin I (0.000-0.056) ng/mL C-Reactive Protein (0.0-0.3) mg/dL NT-Pro-B Natriuret Pep (5-125) pg/mL Total Protein (6.4-8.2) g/dL Albumin (3.4-5.0) g/dL Globulin (2.3-3.5) g/dL Albumin/Globulin Ratio (1.2-2.2) Procalcitonin ng/mL Urine Color Yellow (YELLOW) Urine Appearance Clear (CLEAR) Urine pH 5.5 (5.0-8.0) Ur Specific Lind[place] 1.010 (1.008-1.030) Urine Protein Negative (NEGATIVE) mg/dL Urine Glucose (UA) Negative (NEGATIVE) mg/dL Urine Ketones 15 H (NEGATIVE) mg/dL Urine Occult Blood Negative (NEGATIVE) Urine Nitrite Negative (NEGATIVE) Urine Bilirubin Negative (NEGATIVE) Urine Urobilinogen 0.2 (0.2-1.0) EU/dL Ur Leukocyte Esterase Negative (NEGATIVE) Urine RBC 0-5 (0-5) Urine WBC Not seen (0-5) Ur Epithelial Cells Few Amorphous Sediment Not seen Urine Bacteria Not seen Urine Mucus Not seen Ur Random Sodium 12 L (20-110) mmol/L Ur Random Potassium 9.5 L (12-62) mmol/L Ethyl Alcohol mg/dL SARS-CoV-2 RNA (STEVE) (NEGATIVE) Meds: Medications Generic Name Dose Route Start Last Admin Trade Name Freq PRN Reason Stop Dose Admin Sodium Chloride 1,000 mls @ 999 mls/hr 03/26/21 23:45 03/27/21 00:16 Normal Saline IV 999 mls/hr ASDIRECTED NICHOLAS Administration Sodium Chloride 1,000 mls @ 500 mls/hr 03/27/21 02:30 03/27/21 02:24 Normal Saline IV 500 mls/hr ASDIRECTED NICHOLAS Administration Sodium Chloride 10 ml 03/26/21 21:31 03/26/21 21:41 Sodium Chloride 0.9% 10 Ml Syringe FLUSH 10 ml ASDIRECTED PRN Administration Keep Vein Open Discontinued Medications Generic Name Dose Route Start Last Admin Trade Name Marlena PRN Reason Stop Dose Admin Furosemide 40 mg 03/26/21 23:57 03/27/21 00:15 Furosemide 40 Mg/4 Ml Vial IVPUSH 03/26/21 23:58 40 mg ONETIME ONE Administration Sodium Chloride 100 mls @ 4 mls/sec 03/26/21 23:37 03/26/21 23:46 Normal Saline IV 03/26/21 23:38 4 mls/sec ASDIRECTED STA Administration Iopamidol 100 ml 03/26/21 23:36 03/26/21 23:46 Iopamidol 755 Mg/Ml 100 Ml Bottle IV 03/26/21 23:37 100 ml . DIRECTED STA Administration - Radiology Interpretation Free Text/Narrative:: The portable chest x-ray images as well as the report. There is no sign for any acute infiltrates or groundglass appearance. There is hyperinflation of the lungs with flattening of the diaphragms consistent with COPD. This remains unchanged from previous reports. I reviewed the images of the CT angiogram of the chest as well as the report. There is no sign for acute pulmonary emboli. There is no sign for acute infiltrates. There is a modest amount of atherosclerosis in the aorta. - Re-Assessments/Exams Free Text/Narrative Re-Assessment/Exam: 03/26/21 22:53 I reviewed the patient's labs with a CBC showing a leukocyte count of 9.9, hemoglobin of 14.1, hematocrit of 39.7 and a platelet count of 199 ,000. His comprehensive metabolic panel shows a sodium of 123, his potassium 3.8, chloride of 79 with a bicarbonate of 28, BUN of 14 with a creatinine of 0.7 and a glucose of 62. His AST is 54 with an ALT of 34. His lactic acid is 5.3 likely secondary to his alcohol intake with his ethanol being 258. His ferritin is mildly elevated at 459, CRP is elevated at 6.11, and LDH is normal at 147, and pro N-terminal BNP is 378. COVID-19 test is negative. D-dimer is markedly elevated at 1464. We will get a CT angiogram of the chest to evaluate for pulmonary emboli due to the patient's hypoxia. He is on several liters of oxygen via nasal cannula to maintain a sat above 90%. I am checking urine sodium and urine creatinine to see if this is an SIADH versus sodium depletion due to intoxication. 03/27/21 00:07 CT angiogram of the chest was unremarkable for pulmonary emboli, infiltrates, or groundglass appearance. 03/27/21 06:29 the night, the patient received 2 L of normal saline and Lasix 40 mg IV. He has had good diuresis and his sodium is 130 this morning. He did have a slight drop in his potassium and calcium but these are not worrisome. He is also sobered up at this time. At this time I believe he suitable for discharge home. The patient is encouraged to significantly cut down on his alcohol intake as it is seems to be what is driving his hyponatremia and weakness. This in turn is contributing to his repeated falls. Departure - Departure Time of Disposition: 06:37 Disposition: Home, Self-Care 01 Clinical Impression: Hyponatremia, Lymphedema due to chronic inflammation, Venous stasis dermatitis of both lower extremities, CHF, Congestive heart failure, Alcohol abuse, Generalized muscle weakness - Discharge Information Instructions: Alcohol Use Disorder, Heart Failure, Self Care, [id number], Chronic Venous Insufficiency, Hyponatremia, Alcohol Abuse and Nutrition Referrals: PCP,Unknown [Primary Care Provider] - Forms: ED Department Discharge Care Plan Goals: Follow-up with your primary care provider concerning your generalized weakness and your recurrence of low sodium. I strongly encourage you to significantly cut down your alcohol intake to no more than two 8 ounce servings a day of truly or beer and no more than 4 ounces of hard liquor. The risk of having very low sodium as it may cause swelling of the brain, herniation of the brain which would be lethal, or stop your heart. Remember that the heart is a muscle just like the others in your body and if you are becoming generally weak it is also making your heart generally weak. Sepsis Event Note (ED) - Evaluation Sepsis Screening Result: No Definite Risk - Focused Exam Vital Signs: Vital Signs Temp Pulse Resp BP Pulse Ox 03/27/21 06:16 89 115/60 94 L 03/27/21 05:18 87 20 144/82 H 94 L 03/27/21 04:20 85 110/62 96 03/27/21 03:19 84 117/64 95 03/27/21 02:44 84 18 108/54 L 96 03/27/21 02:18 83 16 81/40 L 93 L 03/27/21 01:15 81 18 117/65 99 03/27/21 00:22 96 20 108/76 98 03/26/21 21:30 35.4 C L 84 19 125/70 93 L - Problem List & Annotations (1) Hyponatremia SNOMED Code(s): 23521416 Code(s): E87.1 - HYPO-OSMOLALITY AND HYPONATREMIA Status: Acute Priority: High Current Visit: Yes (2) Alcohol abuse SNOMED Code(s): 13089875 Code(s): F10.10 - ALCOHOL ABUSE, UNCOMPLICATED Status: Chronic Priority: High Current Visit: Yes (3) CHF, Congestive heart failure SNOMED Code(s): 99039199 Code(s): I50.9 - HEART FAILURE, UNSPECIFIED Status: Chronic Priority: High Current Visit: Yes (4) Generalized muscle weakness SNOMED Code(s): 31282311, 08235226 Code(s): M62.81 - MUSCLE WEAKNESS (GENERALIZED) Status: Acute Priority: High Current Visit: Yes (5) Lymphedema due to chronic inflammation SNOMED Code(s): 630799832 Code(s): I89.0 - LYMPHEDEMA, NOT ELSEWHERE CLASSIFIED Status: Chronic Priority: Medium Current Visit: Yes (6) Venous stasis dermatitis of both lower extremities SNOMED Code(s): 50239308 Code(s): I87.2 - VENOUS INSUFFICIENCY (CHRONIC) (PERIPHERAL) Status: Chronic Priority: Medium Current Visit: Yes - Problem List Review Problem List Initiated/Reviewed/Updated: Yes - My Orders Last 24 Hours: My Active Orders 03/26/21 21:29 EKG 12 Lead [EK] Routine 03/26/21 21:31 Sodium Chloride 0.9% [Saline Flush] 10 ml FLUSH ASDIRECTED PRN Saline Lock Insert [OM.PC] Routine 03/26/21 23:45 Sodium Chloride 0.9% [Normal Saline] 1,000 ml IV ASDIRECTED 03/27/21 02:30 Sodium Chloride 0.9% [Normal Saline] 1,000 ml IV ASDIRECTED - Assessment/Plan Last 24 Hours: My Active Orders 03/26/21 21:29 EKG 12 Lead [EK] Routine 03/26/21 21:31 Sodium Chloride 0.9% [Saline Flush] 10 ml FLUSH ASDIRECTED PRN Saline Lock Insert [OM.PC] Routine 03/26/21 23:45 Sodium Chloride 0.9% [Normal Saline] 1,000 ml IV ASDIRECTED 03/27/21 02:30 Sodium Chloride 0.9% [Normal Saline] 1,000 ml IV ASDIRECTED
--- NOTE | 2021-03-26 22:22 | CRLCR ---
For Patients: As a result of the Cures Act, medical imaging exams and procedure reports are released immediately into your electronic medical record. You may view this report before your referring provider. If you have questions, please contact your health care provider. INDICATION: Loss of appetite and smell TECHNIQUE: Chest radiograph 1 view COMPARISON: 01/19/2021 FINDINGS: The sensitivity and specificity of the exam are moderately limited by the patient`s body habitus. Mediastinum: The mediastinum is normal in appearance. Mild stable cardiomegaly is noted. Lung: Bilateral pulmonary hyperinflation and lucency noted, suggestive of moderate, stable pulmonary emphysema. No sign of pleural effusion seen. No pneumothorax is identified. Bone and Soft tissue: Unremarkable for age. IMPRESSIONS: 1. Bilateral pulmonary hyperinflation and lucency noted, suggestive of moderate, stable pulmonary emphysema. 2. Mild stable cardiomegaly is noted. Dictated by Maverick Dan MD @ 03/26/2021 10:20:23 PM Dictated by: Maverick Dan MD @ 03/26/2021 22:20:26 (Electronically Signed)
[2021-03-26] MEDS ORDERED: Iopamidol 755 Mg/ML 100 ML Bottle IV STA (23:36)
[2021-03-26] MEDS ORDERED: Sodium Chloride 0.9% 100 ML IV STA (23:37)
[2021-03-26] MEDS ORDERED: Sodium Chloride 0.9% 1,000 ML IV SCH (23:45)
[2021-03-26] MEDS ORDERED: Furosemide 40 MG/4 ML VIAL IVPUSH ONE (23:57)
--- NOTE | 2021-03-27 00:58 | CRLCT ---
For Patients: As a result of the Century Cures Act, medical imaging exams and procedure reports are released immediately into your electronic medical record. You may view this report before your referring provider. If you have questions, please contact your health care provider. INDICATION: Elevated D-dimer, hyponatremia TECHNIQUE: CT chest with i.v. contrast using pulmonary angiographic technique. Coronal and sagittal reformats were obtained. CONTRAST: 100 mL Isovue 370 COMPARISON: 01/19/2021 FINDINGS: Cardiovascular: The pulmonary arteries are unremarkable in enhancement with no evidence of acute pulmonary embolism. Severe, stable enlargement of the main pulmonary artery is present and measures 3.8 cm in maximal short axis. Moderate lipomatous hypertrophy of the interatrial septum is present. This is usually a benign finding but can be associated with cardiac arrhythmias. No sign of aneurysm in the thoracic aorta. Mediastinum: No mass or adenopathy seen. Lung: A small focus of ground-glass infiltrate is seen in the central right middle lobe on image 69, series 5 measuring 1.8 cm. Pleura and pericardium: No sign of pleural effusion seen. No significant pericardial effusion is present. Chest wall and axilla: No mass or adenopathy seen. Bone: Bridging anterior syndesmophytes and heterotopic bone connecting the spinous processes are noted throughout the thoracic spine. This may be due to ankylosing spondylitis. Upper abdomen: Mild fatty infiltration of the visualized liver is seen. IMPRESSIONS: 1. No CT evidence of acute pulmonary emboli seen. 2. Severe, stable enlargement of the main pulmonary artery is present and measures 3.8 cm in maximal short axis. This is likely due to pulmonary hypertension. 3. A small focus of ground-glass infiltrate is seen in the central right middle lobe on image 69, series 5 measuring 1.8 cm. This may represent a small focus of pneumonitis or alveolitis. Follow-up CT in 3 months is recommended to document resolution. Dictated by Maverick Dan MD @ 03/27/2021 12:55:43 AM Please note that all CT scans at this facility use dose modulation, iterative reconstruction, and/or weight-based dosing when appropriate to reduce radiation dose to as low as reasonably achievable. Dictated by: Maverick Dan MD @ 03/27/2021 00:55:46 (Electronically Signed)
[2021-03-27] MEDS ORDERED: Sodium Chloride 0.9% 1,000 ML IV SCH (02:30)
[2021-03-27 06:16] VITALS: BP 115/60; PULSE 89
== END 2021-03-27 07:51 | disposition home or self-care (01) ==
LOC: JP.ED 21:28
DX: I11.0 Hypertensive heart disease with heart failure (principal); I50.9 Heart failure, unspecified; I83.12 Varicose veins of left lower extremity with inflammation; I83.11 Varicose veins of right lower extremity with inflammation; F10.10 Alcohol abuse, uncomplicated; I89.0 Lymphedema, not elsewhere classified; E87.1 Hypo-osmolality and hyponatremia; E78.00 Pure hypercholesterolemia, unspecified; J44.9 Chronic obstructive pulmonary disease, unspecified; M10.9 Gout, unspecified; E66.9 Obesity, unspecified; Z68.30 Body mass index [BMI] 30.0-30.9, adult; Z79.82 Long term (current) use of aspirin; Z79.84 Long term (current) use of oral hypoglycemic drugs; Z20.822 Contact with and (suspected) exposure to COVID-19; Y90.8 Blood alcohol level of 240 mg/100 ml or more
CPT/HCPCS: 36415; 71045; 71275; 80048; 80053; 80307; 81001; 82550; 82728; 83605; 83615; 83880; 84133; 84145; 84300; 84484; 85025; 85379; 85610; 86140; 93005; 96374; 99285; J1940; J7030; Q9967; U0002

== ENCOUNTER 2021-04-08 18:34 | Emergency (ER) | payer MEDICARE ==
--- NOTE | 2021-04-08 19:02 | EDM.PDOC ---
<OfficerNino - Last Filed: 04/08/21 18:57> ED HPI GENERAL MEDICAL PROBLEM - General Chief Complaint: General Stated Complaint: [facility]IA [facility] Time Seen by Provider: 04/08/21 18:51 Source of Information: Reports: Patient, Old Records, RN Notes Reviewed History Limitations: Reports: No Limitations - History of Present Illness INITIAL COMMENTS - FREE TEXT/NARRATIVE: 70-year-old gentleman presents emergency department day complaint of weakness, review of records show that he has been to the emergency department multiple times for the complaint of weakness does have a known history of alcohol abuse and dependence. He asked if there are any beds available he would like to stay the evening. No shortness of breath no chest pain no nausea no vomiting just generalized weakness has been going on for about 3 days but today was particularly worse. - Related Data Allergies Allergy/AdvReac Type Severity Reaction Status Date / Time No Known Allergies Allergy Verified 04/08/21 18:43 Home Meds: Home Meds Fluticasone Propionate [Flovent] 2 spray ANNA DAILY 04/08/17 [History] Metoprolol Tartrate [Lopressor] 1 tab PO BID 04/08/17 [History] Triamcinolone Acetonide [Kenalog 0.1% Crm] 1 appful TOP TID 04/08/17 [History] allopurinoL [Zyloprim] 1 tab PO DAILY 04/08/17 [History] atorvaSTATin [Lipitor] 1 tab PO BEDTIME 04/08/17 [History] metFORMIN [Glucophage XR] 1 tab PO BID 04/08/17 [History] Albuterol Sulfate [Proair Hfa] 1 - 2 dose INH ASDIRECTED PRN 04/26/18 [History] Albuterol/Ipratropium [DuoNeb 3.0-0.5 MG/3 ML] 1 dose INH BID 04/26/18 [History] Budesonide [Pulmicort] 1 dose INH BID 04/26/18 [History] Furosemide [Lasix] 1 tab PO DAILY 04/26/18 [History] Aspirin [Adult Low Dose Aspirin EC] 81 mg PO DAILY 01/19/21 [History] Past Medical History HEENT History: Reports: Hard of Hearing, Impaired Vision Cardiovascular History: Reports: Heart Failure, High Cholesterol, Hypertension Respiratory History: Reports: COPD Musculoskeletal History: Reports: Gout Endocrine/Metabolic History: Reports: Diabetes, Type II, Obesity/BMI 30+ - Infectious Disease History Infectious Disease History: Reports: Chicken Pox, Measles, Mumps - Past Surgical History GI Surgical History: Reports: Cholecystectomy, Colonoscopy Social & Family History - Family History Family Medical History: No Pertinent Family History - Tobacco Use Tobacco Use Status *Q: Heavy Tobacco User Years of Tobacco use: 60 Packs/Tins Daily: 0.5 - Caffeine Use Caffeine Use: Reports: Coffee - Alcohol Use Number of Drinks Per Day: 2 - Recreational Drug Use Recreational Drug Use: No ED ROS GENERAL - Review of Systems Review Of Systems: See Below Constitutional: Reports: Weakness, Fatigue HEENT: Reports: No Symptoms Respiratory: Reports: No Symptoms Cardiovascular: Reports: Edema GI/Abdominal: Reports: No Symptoms : Reports: No Symptoms ED EXAM, GENERAL - Physical Exam Exam: See Below Exam Limited By: No Limitations General Appearance: Alert, WD/WN, No Apparent Distress Respiratory/Chest: No Accessory Muscle Use, Chest Non-Tender, Decreased Breath Sounds Cardiovascular: Regular Rate, Rhythm, No Murmur, Other (Bilateral +3 edema with chronic venous stasis dermatitis) Departure - Departure Disposition: Home, Self-Care 01 Clinical Impression: Hyponatremia, Weakness - Discharge Information Instructions: Hyponatremia, [id number] Referrals: PCP,None [Primary Care Provider] - Forms: ED Department Discharge Additional Instructions: Reduce your furosemide to every other day. F/U with your primary care provider as soon as possible to check your lungs due to reducing your furosemide and to recheck your sodium level. Return as needed. Sepsis Event Note (ED) - Evaluation Sepsis Screening Result: No Definite Risk <James Waldron G - Last Filed: 04/09/21 07:43> Course - Vital Signs Last Recorded V/S: Last Vital Signs Temp 36.4 C 04/09/21 02:30 Pulse 59 L 04/09/21 05:30 Resp 16 04/09/21 05:30 BP 107/44 L 04/09/21 05:30 Pulse Ox 98 04/09/21 05:30 - Orders/Labs/Meds Orders: Active Orders 24 hr Category Date Time Status Peripheral IV Care [RC] . DIRECTED Care 04/08/21 20:04 Active Chest 2V [CR] Urgent Exams 04/08/21 18:57 Taken Lactated Ringers [Ringers, Lactated] 1,000 ml Med 04/09/21 04:10 Active IV BOLUS Sodium Chloride 0.9% [Saline Flush] Med 04/08/21 20:04 Active 10 ml FLUSH ASDIRECTED PRN Sodium Chloride 3% 500 ml Med 04/08/21 20:15 Active IV ASDIRECTED Peripheral IV Insertion Adult [OM.PC] Urgent Oth 04/08/21 20:04 Ordered Medication Orders Sodium Chloride (Sodium Chloride 3%) 500 mls @ 50 mls/hr IV ASDIRECTED NICHOLAS Last Admin: 04/08/21 20:19 Dose: 50 mls/hr Documented by: SHEREE Lactated Ringer's (Ringers, Lactated) 1,000 mls @ 125 mls/hr IV BOLUS ONE Stop: 04/09/21 12:09 Last Admin: 04/09/21 04:23 Dose: 125 mls/hr Documented by: SHEREE Sodium Chloride (Sodium Chloride 0.9% 10 Ml Syringe) 10 ml FLUSH ASDIRECTED PRN PRN Reason: Keep Vein Open Last Admin: 04/08/21 20:22 Dose: 10 ml Documented by: SHEREE Labs: Laboratory Tests 04/08/21 04/08/21 04/08/21 Range/Units 19:03 19:09 19:09 WBC 9.8 (4.5-11.0) K/uL RBC 3.90 L (4.30-5.90) M/uL Hgb 13.0 (12.0-15.0) g/dL Hct 37.4 L (40.0-54.0) % MCV 96 (80-98) fL MCH 33 H (27-31) pg MCHC 35 (32-36) % Plt Count 252 (150-400) K/uL Neut % (Auto) 74.9 H (36-66) % Lymph % (Auto) 15.1 L (24-44) % [place] % (Auto) 8.1 H (2-6) % Eos % (Auto) 1.3 L (2-4) % Baso % (Auto) 0.6 (0-1) % Sodium (140-148) mmol/L Potassium (3.6-5.2) mmol/L Chloride (100-108) mmol/L Carbon Dioxide (21-32) mmol/L Anion Gap (5.0-14.0) mmol/L BUN (7-18) mg/dL Creatinine (0.8-1.3) mg/dL Est Cr Clr Drug Dosing mL/min Estimated GFR (MDRD) (>60) Glucose (74-106) mg/dL Lactic Acid (0.4-2.0) mmol/L Calcium (8.5-10.1) mg/dL Total Bilirubin (0.2-1.0) mg/dL AST (15-37) U/L ALT (12-78) U/L Alkaline Phosphatase (46-116) U/L Ammonia (11-32) umol/L Troponin I (0.000-0.056) ng/mL NT-Pro-B Natriuret Pep (5-125) pg/mL Total Protein (6.4-8.2) g/dL Albumin (3.4-5.0) g/dL Globulin (2.3-3.5) g/dL Albumin/Globulin Ratio (1.2-2.2) TSH, Ultra Sensitive (0.358-3.740) uIU/mL Urine Color Yellow (YELLOW) Urine Appearance Clear (CLEAR) Urine pH 8.0 (5.0-8.0) Ur Specific [place] 1.015 (1.008-1.030) Urine Protein Negative (NEGATIVE) mg/dL Urine Glucose (UA) Negative (NEGATIVE) mg/dL Urine Ketones Negative (NEGATIVE) mg/dL Urine Occult Blood Negative (NEGATIVE) Urine Nitrite Negative (NEGATIVE) Urine Bilirubin Negative (NEGATIVE) Urine Urobilinogen 1.0 (0.2-1.0) EU/dL Ur Leukocyte Esterase Negative (NEGATIVE) Urine RBC 0-5 (0-5) Urine WBC 0-5 (0-5) Ur Epithelial Cells Not seen Amorphous Sediment Not seen Urine Bacteria Rare Urine Mucus Not seen Ethyl Alcohol 12 mg/dL SARS-CoV-2 RNA (STEVE) (NEGATIVE) 04/08/21 04/08/21 04/08/21 Range/Units 19:09 19:09 19:09 WBC (4.5-11.0) K/uL RBC (4.30-5.90) M/uL Hgb (12.0-15.0) g/dL Hct (40.0-54.0) % MCV (80-98) fL MCH (27-31) pg MCHC (32-36) % Plt Count (150-400) K/uL Neut % (Auto) (36-66) % Lymph % (Auto) (24-44) % [place] % (Auto) (2-6) % Eos % (Auto) (2-4) % Baso % (Auto) (0-1) % Sodium 124 L (140-148) mmol/L Potassium 3.0 L (3.6-5.2) mmol/L Chloride 84 L (100-108) mmol/L Carbon Dioxide 31 (21-32) mmol/L Anion Gap 12.0 (5.0-14.0) mmol/L BUN 5 L D (7-18) mg/dL Creatinine 0.6 L (0.8-1.3) mg/dL Est Cr Clr Drug Dosing 123.94 mL/min Estimated GFR (MDRD) > 60 (>60) Glucose 99 (74-106) mg/dL Lactic Acid 2.3 H (0.4-2.0) mmol/L Calcium 8.0 L (8.5-10.1) mg/dL Total Bilirubin 0.8 (0.2-1.0) mg/dL AST 40 H (15-37) U/L ALT 38 (12-78) U/L Alkaline Phosphatase 99 (46-116) U/L Ammonia 16 (11-32) umol/L Troponin I < 0.017 (0.000-0.056) ng/mL NT-Pro-B Natriuret Pep (5-125) pg/mL Total Protein 6.0 L (6.4-8.2) g/dL Albumin 3.1 L (3.4-5.0) g/dL Globulin 2.9 (2.3-3.5) g/dL Albumin/Globulin Ratio 1.1 L (1.2-2.2) TSH, Ultra Sensitive 1.508 (0.358-3.740) uIU/mL Urine Color (YELLOW) Urine Appearance (CLEAR) Urine pH (5.0-8.0) Ur Specific [place] (1.008-1.030) Urine Protein (NEGATIVE) mg/dL Urine Glucose (UA) (NEGATIVE) mg/dL Urine Ketones (NEGATIVE) mg/dL Urine Occult Blood (NEGATIVE) Urine Nitrite (NEGATIVE) Urine Bilirubin (NEGATIVE) Urine Urobilinogen (0.2-1.0) EU/dL Ur Leukocyte Esterase (NEGATIVE) Urine RBC (0-5) Urine WBC (0-5) Ur Epithelial Cells Amorphous Sediment Urine Bacteria Urine Mucus Ethyl Alcohol mg/dL SARS-CoV-2 RNA (STEVE) (NEGATIVE) 04/08/21 04/08/21 04/08/21 Range/Units 19:09 19:22 22:30 WBC (4.5-11.0) K/uL RBC (4.30-5.90) M/uL Hgb (12.0-15.0) g/dL Hct (40.0-54.0) % MCV (80-98) fL MCH (27-31) pg MCHC (32-36) % Plt Count (150-400) K/uL Neut % (Auto) (36-66) % Lymph % (Auto) (24-44) % [place] % (Auto) (2-6) % Eos % (Auto) (2-4) % Baso % (Auto) (0-1) % Sodium 125 L (140-148) mmol/L Potassium (3.6-5.2) mmol/L Chloride (100-108) mmol/L Carbon Dioxide (21-32) mmol/L Anion Gap (5.0-14.0) mmol/L BUN (7-18) mg/dL Creatinine (0.8-1.3) mg/dL Est Cr Clr Drug Dosing mL/min Estimated GFR (MDRD) (>60) Glucose (74-106) mg/dL Lactic Acid (0.4-2.0) mmol/L Calcium (8.5-10.1) mg/dL Total Bilirubin (0.2-1.0) mg/dL AST (15-37) U/L ALT (12-78) U/L Alkaline Phosphatase (46-116) U/L Ammonia (11-32) umol/L Troponin I (0.000-0.056) ng/mL NT-Pro-B Natriuret Pep 867 H (5-125) pg/mL Total Protein (6.4-8.2) g/dL Albumin (3.4-5.0) g/dL Globulin (2.3-3.5) g/dL Albumin/Globulin Ratio (1.2-2.2) TSH, Ultra Sensitive (0.358-3.740) uIU/mL Urine Color (YELLOW) Urine Appearance (CLEAR) Urine pH (5.0-8.0) Ur Specific [place] (1.008-1.030) Urine Protein (NEGATIVE) mg/dL Urine Glucose (UA) (NEGATIVE) mg/dL Urine Ketones (NEGATIVE) mg/dL Urine Occult Blood (NEGATIVE) Urine Nitrite (NEGATIVE) Urine Bilirubin (NEGATIVE) Urine Urobilinogen (0.2-1.0) EU/dL Ur Leukocyte Esterase (NEGATIVE) Urine RBC (0-5) Urine WBC (0-5) Ur Epithelial Cells Amorphous Sediment Urine Bacteria Urine Mucus Ethyl Alcohol mg/dL SARS-CoV-2 RNA (STEVE) Negative (NEGATIVE) 04/09/21 04/09/21 04/09/21 Range/Units 00:42 03:24 07:10 WBC (4.5-11.0) K/uL RBC (4.30-5.90) M/uL Hgb (12.0-15.0) g/dL Hct (40.0-54.0) % MCV (80-98) fL MCH (27-31) pg MCHC (32-36) % Plt Count (150-400) K/uL Neut % (Auto) (36-66) % Lymph % (Auto) (24-44) % [place] % (Auto) (2-6) % Eos % (Auto) (2-4) % Baso % (Auto) (0-1) % Sodium 127 L 129 L 130 L (140-148) mmol/L Potassium 3.6 (3.6-5.2) mmol/L Chloride 91 L (100-108) mmol/L Carbon Dioxide 34 H (21-32) mmol/L Anion Gap 8.6 (5.0-14.0) mmol/L BUN 6 L (7-18) mg/dL Creatinine 0.7 L (0.8-1.3) mg/dL Est Cr Clr Drug Dosing 106.24 mL/min Estimated GFR (MDRD) > 60 (>60) Glucose 106 (74-106) mg/dL Lactic Acid (0.4-2.0) mmol/L Calcium 8.2 L (8.5-10.1) mg/dL Total Bilirubin (0.2-1.0) mg/dL AST (15-37) U/L ALT (12-78) U/L Alkaline Phosphatase (46-116) U/L Ammonia (11-32) umol/L Troponin I (0.000-0.056) ng/mL NT-Pro-B Natriuret Pep (5-125) pg/mL Total Protein (6.4-8.2) g/dL Albumin (3.4-5.0) g/dL Globulin (2.3-3.5) g/dL Albumin/Globulin Ratio (1.2-2.2) TSH, Ultra Sensitive (0.358-3.740) uIU/mL Urine Color (YELLOW) Urine Appearance (CLEAR) Urine pH (5.0-8.0) Ur Specific [place] (1.008-1.030) Urine Protein (NEGATIVE) mg/dL Urine Glucose (UA) (NEGATIVE) mg/dL Urine Ketones (NEGATIVE) mg/dL Urine Occult Blood (NEGATIVE) Urine Nitrite (NEGATIVE) Urine Bilirubin (NEGATIVE) Urine Urobilinogen (0.2-1.0) EU/dL Ur Leukocyte Esterase (NEGATIVE) Urine RBC (0-5) Urine WBC (0-5) Ur Epithelial Cells Amorphous Sediment Urine Bacteria Urine Mucus Ethyl Alcohol mg/dL SARS-CoV-2 RNA (STEVE) (NEGATIVE) Meds: Medications Generic Name Dose Route Start Last Admin Trade Name Freq PRN Reason Stop Dose Admin Sodium Chloride 500 mls @ 50 mls/hr 04/08/21 20:15 04/08/21 20:19 Sodium Chloride 3% IV 50 mls/hr ASDIRECTED NICHOLAS Administration Lactated Ringer's 1,000 mls @ 125 mls/hr 04/09/21 04:10 04/09/21 04:23 Ringers, Lactated IV 04/09/21 12:09 125 mls/hr BOLUS ONE Administration Sodium Chloride 10 ml 04/08/21 20:04 04/08/21 20:22 Sodium Chloride 0.9% 10 Ml Syringe FLUSH 10 ml ASDIRECTED PRN Administration Keep Vein Open Discontinued Medications Generic Name Dose Route Start Last Admin Trade Name Freq PRN Reason Stop Dose Admin Potassium Chloride 40 meq 04/08/21 21:21 04/08/21 21:37 Potassium Chloride 20 Meq Tab.Er PO 04/08/21 21:22 40 meq ONETIME ONE Administration Departure - Departure Time of Disposition: 07:50 Condition: Fair - Discharge Information *PRESCRIPTION DRUG MONITORING PROGRAM REVIEWED*: Not Applicable *COPY OF PRESCRIPTION DRUG MONITORING REPORT IN PATIENT VIN: Not Applicable Sepsis Event Note (ED) - Focused Exam Vital Signs: Vital Signs Temp Pulse Resp BP Pulse Ox 04/09/21 05:30 59 L 16 107/44 L 98 04/09/21 04:30 60 18 123/61 96 04/09/21 03:30 73 22 H 115/60 97 04/09/21 02:30 36.4 C 64 20 119/58 L 99 04/09/21 01:30 68 18 136/66 98 04/09/21 00:30 74 17 132/55 L 98 04/08/21 23:46 76 22 H 135/72 95 04/08/21 22:50 36.3 C 70 26 H 134/69 93 L 04/08/21 22:12 76 24 H 134/68 92 L 04/08/21 20:42 79 15 134/70 93 L 04/08/21 19:57 78 11 L 134/66 92 L
[2021-04-08] MEDS ORDERED: Sodium Chloride 0.9% 10 ML Syringe FLUSH PRN (20:04)
[2021-04-08] MEDS ORDERED: Sodium Chloride 3% 500 ML IV SCH (20:15)
[2021-04-08] MEDS ORDERED: Potassium Chloride 20 MEQ Tab.ER PO ONE (21:21)
[2021-04-09] MEDS ORDERED: Lactated Ringers 1,000 ML IV ONE (04:10)
[2021-04-09 08:13] VITALS: BP 128/66; PULSE 89
--- NOTE | 2021-04-09 09:07 | CR ---
CHEST: 2 view CLINICAL HISTORY:Weakness COMPARISON:CT chest 03/27/2021 FINDINGS: The heart size, pulmonary vascularity and hilar structures are normal. No infiltrate effusion or pneumothorax is seen. Lungs are emphysematous. There is mild prominence interstitial markings which is felt to be chronic. There are atherosclerotic changes in the aorta. IMPRESSION: No acute cardiopulmonary process. Changes of COPD
== END 2021-04-09 08:45 | disposition home or self-care (01) ==
LOC: JP.ED 18:34
DX: R53.1 Weakness (principal); E87.1 Hypo-osmolality and hyponatremia; I11.0 Hypertensive heart disease with heart failure; I50.9 Heart failure, unspecified; E78.00 Pure hypercholesterolemia, unspecified; J44.9 Chronic obstructive pulmonary disease, unspecified; E11.9 Type 2 diabetes mellitus without complications; E66.9 Obesity, unspecified; M10.9 Gout, unspecified; Z68.30 Body mass index [BMI] 30.0-30.9, adult; Z72.0 Tobacco use; Z79.82 Long term (current) use of aspirin; Z79.899 Other long term (current) drug therapy; Z79.84 Long term (current) use of oral hypoglycemic drugs
CPT/HCPCS: 36415; 71046; 80048; 80053; 80307; 81001; 82140; 83605; 83880; 84295; 84443; 84484; 85025; 99285; A9270; J7120; J7131; U0002

== ENCOUNTER 2021-04-22 06:19 | Emergency (ER) | payer MEDICARE ==
--- NOTE | 2021-04-22 06:23 | EDM.PDOC ---
<Alexis Valencia - Last Filed: 04/22/21 06:31> ED HPI GENERAL MEDICAL PROBLEM - General Chief Complaint: General Stated Complaint: MEDICAL VIA [place] Time Seen by Provider: 04/22/21 06:20 Source of Information: Reports: Patient, EMS History Limitations: Reports: No Limitations - History of Present Illness INITIAL COMMENTS - FREE TEXT/NARRATIVE: Biju is a 70-year-old male presenting to the ED via [facility] for evaluation of generalized weakness. Patient is a frequent heavy alcohol user and has recently been seen and evaluated in the ED for hyponatremia. He states he was in the ER last week with hyponatremia and ended up getting transferred to [place] where he received 3 L normal saline and eventually was discharged. He states that he has been weak ever since then and is convinced that his sodium is still low. He also is wanting detox and states that he has a bed waiting for him at [facility]. Continues to consume a considerable amount of alcohol daily. He reports that on Tuesday his blood sugar was low but he does not have a glucometer to measure it at home. Today his was 157 per EMS. The patient denies any falls since I last saw him but he feels generally weak. He has significant swelling in both lower extremities. He continues to smoke despite having COPD and has a cough, but denies any fever or chills. He has had no worsening in shortness of breath. - Related Data Allergies Allergy/AdvReac Type Severity Reaction Status Date / Time No Known Allergies Allergy Verified 04/22/21 06:57 Home Meds: Home Meds Fluticasone Propionate [Flovent] 2 spray ANNA DAILY 04/08/17 [History] Metoprolol Tartrate [Lopressor] 1 tab PO BID 04/08/17 [History] Triamcinolone Acetonide [Kenalog 0.1% Crm] 1 appful TOP TID 04/08/17 [History] allopurinoL [Zyloprim] 1 tab PO DAILY 04/08/17 [History] atorvaSTATin [Lipitor] 1 tab PO BEDTIME 04/08/17 [History] metFORMIN [Glucophage XR] 1 tab PO BID 04/08/17 [History] Albuterol Sulfate [Proair Hfa] 1 - 2 dose INH ASDIRECTED PRN 04/26/18 [History] Albuterol/Ipratropium [DuoNeb 3.0-0.5 MG/3 ML] 1 dose INH BID 04/26/18 [History] Budesonide [Pulmicort] 1 dose INH BID 04/26/18 [History] Furosemide [Lasix] 1 tab PO DAILY 04/26/18 [History] Aspirin [Adult Low Dose Aspirin EC] 81 mg PO DAILY 01/19/21 [History] Past Medical History HEENT History: Reports: Hard of Hearing, Impaired Vision Cardiovascular History: Reports: Heart Failure, High Cholesterol, Hypertension Respiratory History: Reports: COPD Musculoskeletal History: Reports: Gout Endocrine/Metabolic History: Reports: Diabetes, Type II, Obesity/BMI 30+ - Infectious Disease History Infectious Disease History: Reports: Chicken Pox, Measles, Mumps - Past Surgical History GI Surgical History: Reports: Cholecystectomy, Colonoscopy Social & Family History - Family History Family Medical History: No Pertinent Family History - Caffeine Use Caffeine Use: Reports: Coffee ED ROS GENERAL - Review of Systems Review Of Systems: See Below Constitutional: Reports: Weakness (Generalized). Denies: Fever, Chills, Decreased Appetite HEENT: Reports: No Symptoms Respiratory: Reports: Shortness of Breath, Cough Cardiovascular: Reports: Edema (Significant peripheral edema) Endocrine: Reports: Fatigue GI/Abdominal: Reports: No Symptoms. Denies: Abdominal Pain, Decreased Appetite, Nausea, Vomiting : Reports: No Symptoms Musculoskeletal: Reports: No Symptoms Skin: Reports: No Symptoms Neurological: Reports: Weakness (Generalized) Psychiatric: Reports: No Symptoms Hematologic/Lymphatic: Reports: No Symptoms Immunologic: Reports: No Symptoms ED EXAM, GENERAL - Physical Exam Exam: See Below Exam Limited By: No Limitations General Appearance: Alert, Anxious Eye Exam: Bilateral Eye: EOMI, PERRL Throat/Mouth: Normal Inspection, Normal Oropharynx, Normal Voice, No Airway Compromise Head: Atraumatic, Normocephalic Neck: Normal Inspection Respiratory/Chest: No Respiratory Distress, Lungs Clear, Normal Breath Sounds Cardiovascular: Normal Peripheral Pulses, Regular Rate, Rhythm, No Murmur, JVD (4 cm at 45 degrees) GI/Abdominal: Normal Bowel Sounds, Soft, Non-Tender Back Exam: Normal Inspection, Full Range of Motion Extremities: Normal Range of Motion, Pedal Edema (Is edema to mid calf) Neurological: Alert, Oriented, Normal Cognition, No Motor/Sensory Deficits Psychiatric: Anxious Skin Exam: Warm, Dry Course - Re-Assessments/Exams Free Text/Narrative Re-Assessment/Exam: 04/22/21 06:52 labs have been obtained including a CBC, comprehensive metabolic profile, pro N-terminal BNP, ethanol, and COVID-19. Care of the patient will be turned over to Officer from Dr. Valencia at 0700 while awaiting results of the tests. Patient is concerned that he has ongoing issues with hyponatremia and has had significant intake of alcohol on a daily basis and is wanting medical clearance for [facility]. Departure - Departure Disposition: DC/Tfer to Inpt Rehab Fac 62 Clinical Impression: Alcohol abuse - Discharge Information Instructions: Alcohol Use Disorder Referrals: PCP,None [Primary Care Provider] - Forms: ED Department Discharge Additional Instructions: Please report to [facility] detoxification facility for further evaluation and treatment <OfficerNino - Last Filed: 04/22/21 08:37> Course - Vital Signs Last Recorded V/S: Last Vital Signs Temp 97.6 F 04/22/21 06:29 Pulse 67 04/22/21 06:29 Resp 16 04/22/21 06:29 BP 139/70 04/22/21 06:29 Pulse Ox 94 L 04/22/21 06:29 - Orders/Labs/Meds Orders: Active Orders 24 hr Category Date Time Status Isolation [COMM] Stat Oth 04/22/21 06:25 Ordered Labs: Laboratory Tests 04/22/21 04/22/21 04/22/21 Range/Units 06:21 06:29 06:30 WBC 7.6 (4.5-11.0) K/uL RBC 3.86 L (4.30-5.90) M/uL Hgb 13.0 (12.0-15.0) g/dL Hct 38.3 L (40.0-54.0) % MCV 99 H (80-98) fL MCH 34 H (27-31) pg MCHC 34 (32-36) % Plt Count 181 (150-400) K/uL Neut % (Auto) 75.1 H (36-66) % Lymph % (Auto) 14.3 L (24-44) % Boyd % (Auto) 7.9 H (2-6) % Eos % (Auto) 2.2 (2-4) % Baso % (Auto) 0.5 (0-1) % Sodium (140-148) mmol/L Potassium (3.6-5.2) mmol/L Chloride (100-108) mmol/L Carbon Dioxide (21-32) mmol/L Anion Gap (5.0-14.0) mmol/L BUN (7-18) mg/dL Creatinine (0.8-1.3) mg/dL Est Cr Clr Drug Dosing Estimated GFR (MDRD) (>60) Glucose (74-106) mg/dL Lactic Acid 2.2 H (0.4-2.0) mmol/L Calcium (8.5-10.1) mg/dL Total Bilirubin (0.2-1.0) mg/dL AST (15-37) U/L ALT (12-78) U/L Alkaline Phosphatase (46-116) U/L NT-Pro-B Natriuret Pep (5-125) pg/mL Total Protein (6.4-8.2) g/dL Albumin (3.4-5.0) g/dL Globulin (2.3-3.5) g/dL Albumin/Globulin Ratio (1.2-2.2) Urine Color Yellow (YELLOW) Urine Appearance Clear (CLEAR) Urine pH 7.0 (5.0-8.0) Ur Specific [place] 1.020 (1.008-1.030) Urine Protein Negative (NEGATIVE) mg/dL Urine Glucose (UA) Negative (NEGATIVE) mg/dL Urine Ketones Negative (NEGATIVE) mg/dL Urine Occult Blood Negative (NEGATIVE) Urine Nitrite Negative (NEGATIVE) Urine Bilirubin Negative (NEGATIVE) Urine Urobilinogen 0.2 (0.2-1.0) EU/dL Ur Leukocyte Esterase Negative (NEGATIVE) Urine RBC 0-5 (0-5) Urine WBC 0-5 (0-5) Ur Epithelial Cells Not seen Amorphous Sediment Not seen Urine Bacteria Few Urine Mucus Not seen Ethyl Alcohol mg/dL Influenza Type A RNA (NEGATIVE) RSV RNA (INAAT) (NEGATIVE) Influenza Type B RNA (NEGATIVE) SARS-CoV-2 RNA (STEVE) (NEGATIVE) 04/22/21 04/22/21 04/22/21 Range/Units 06:30 06:30 07:46 WBC (4.5-11.0) K/uL RBC (4.30-5.90) M/uL Hgb (12.0-15.0) g/dL Hct (40.0-54.0) % MCV (80-98) fL MCH (27-31) pg MCHC (32-36) % Plt Count (150-400) K/uL Neut % (Auto) (36-66) % Lymph % (Auto) (24-44) % [place] % (Auto) (2-6) % Eos % (Auto) (2-4) % Baso % (Auto) (0-1) % Sodium 136 L (140-148) mmol/L Potassium 3.6 (3.6-5.2) mmol/L Chloride 94 L (100-108) mmol/L Carbon Dioxide 32 (21-32) mmol/L Anion Gap 13.6 (5.0-14.0) mmol/L BUN 7 (7-18) mg/dL Creatinine 0.6 L (0.8-1.3) mg/dL Est Cr Clr Drug Dosing TNP Estimated GFR (MDRD) > 60 (>60) Glucose 132 H (74-106) mg/dL Lactic Acid (0.4-2.0) mmol/L Calcium 9.2 (8.5-10.1) mg/dL Total Bilirubin 0.7 (0.2-1.0) mg/dL AST 60 H (15-37) U/L ALT 39 (12-78) U/L Alkaline Phosphatase 109 (46-116) U/L NT-Pro-B Natriuret Pep 851 H (5-125) pg/mL Total Protein 6.7 (6.4-8.2) g/dL Albumin 3.5 (3.4-5.0) g/dL Globulin 3.2 (2.3-3.5) g/dL Albumin/Globulin Ratio 1.1 L (1.2-2.2) Urine Color (YELLOW) Urine Appearance (CLEAR) Urine pH (5.0-8.0) Ur Specific [place] (1.008-1.030) Urine Protein (NEGATIVE) mg/dL Urine Glucose (UA) (NEGATIVE) mg/dL Urine Ketones (NEGATIVE) mg/dL Urine Occult Blood (NEGATIVE) Urine Nitrite (NEGATIVE) Urine Bilirubin (NEGATIVE) Urine Urobilinogen (0.2-1.0) EU/dL Ur Leukocyte Esterase (NEGATIVE) Urine RBC (0-5) Urine WBC (0-5) Ur Epithelial Cells Amorphous Sediment Urine Bacteria Urine Mucus Ethyl Alcohol 19 mg/dL Influenza Type A RNA Negative (NEGATIVE) RSV RNA (INAAT) Negative (NEGATIVE) Influenza Type B RNA Negative (NEGATIVE) SARS-CoV-2 RNA (STEVE) Negative (NEGATIVE) Departure - Departure Time of Disposition: 08:36 Condition: Fair Sepsis Event Note (ED) - Focused Exam Vital Signs: Vital Signs Temp Pulse Resp BP Pulse Ox 04/22/21 06:29 97.6 F 67 16 139/70 94 L 04/22/21 06:22 97.6 F 67 16 139/70 94 L - Assessment/Plan Plan: Took over care pending laboratory blood work for medical evaluation for clearance to detoxification facility Assessment Acuity = acute Site and laterality = alcohol abuse and dependence Etiology = EtOH Manifestations = none Location of injury = Home Lab values = CBC unremarkable CMP unremarkable lactic acid slightly elevated 2.2 consistent lactic acidosis BNP elevated 857 of uncertain significance alcohol is at 19 Covid is negative influenza AMB negative RSV negative Plan This gentleman is of average risk for detoxification he will be transferred to [facility] facility, there is no medical intervention at this time This note was dictated using [employer] voice recognition software please call with any questions on syntax or grammar.
[2021-04-22 06:29] VITALS: BP 139/70; PULSE 67
[2021-04-22 08:22] LABS: CORONAVIRUS COVID-19 NAA NEGATIVE (NEGATIVE)
== END 2021-04-22 12:13 ==
LOC: JP.ED 06:19
DX: F10.10 Alcohol abuse, uncomplicated (principal); Y90.0 Blood alcohol level of less than 20 mg/100 ml; I11.0 Hypertensive heart disease with heart failure; I50.9 Heart failure, unspecified; E78.00 Pure hypercholesterolemia, unspecified; E11.9 Type 2 diabetes mellitus without complications; E66.9 Obesity, unspecified; Z68.34 Body mass index [BMI] 34.0-34.9, adult; Z79.82 Long term (current) use of aspirin; Z79.84 Long term (current) use of oral hypoglycemic drugs; Z79.899 Other long term (current) drug therapy; Z20.822 Contact with and (suspected) exposure to COVID-19
CPT/HCPCS: 0241U; 36415; 80053; 80305; 80307; 81001; 83605; 83880; 85025; 99285

== ENCOUNTER 2021-06-29 21:01 | Emergency (ER) | payer MEDICARE ==
[2021-06-29] MEDS ORDERED: cloNIDine 0.1 MG Tab PO ONE (22:07)
[2021-06-29] MEDS ORDERED: Ketorolac 30 MG/ML SDV IM ONE (22:07)
[2021-06-29] MEDS ORDERED: Sodium Chloride 0.9% 1,000 ML IV ONE (22:10)
[2021-06-29 23:43] VITALS: BP 139/65; PULSE 78
== END 2021-06-30 00:04 | disposition home or self-care (01) ==
LOC: JP.ED 21:01
DX: R53.1 Weakness (principal); F10.10 Alcohol abuse, uncomplicated; F17.200 Nicotine dependence, unspecified, uncomplicated; E87.1 Hypo-osmolality and hyponatremia; I11.0 Hypertensive heart disease with heart failure; I50.9 Heart failure, unspecified; E78.00 Pure hypercholesterolemia, unspecified; M10.9 Gout, unspecified; E11.9 Type 2 diabetes mellitus without complications; E66.9 Obesity, unspecified; Z68.30 Body mass index [BMI] 30.0-30.9, adult; Z79.82 Long term (current) use of aspirin; Z79.84 Long term (current) use of oral hypoglycemic drugs; Z79.899 Other long term (current) drug therapy
CPT/HCPCS: 36415; 80053; 81001; 84484; 85025; 99285; J7030

== ENCOUNTER 2021-07-17 06:03 | Emergency (ER) | payer MEDICARE ==
[2021-07-17] MEDS ORDERED: Sodium Chloride 0.9% 10 ML Syringe FLUSH PRN (06:07)
[2021-07-17 06:13] VITALS: BP 157/73; PULSE 69
[2021-07-17 07:16] LABS: CORONAVIRUS COVID-19 NAA NEGATIVE (NEGATIVE)
== END 2021-07-17 08:30 | disposition home or self-care (01) ==
LOC: JP.ED 06:03
DX: E87.6 Hypokalemia (principal); E87.1 Hypo-osmolality and hyponatremia; I11.0 Hypertensive heart disease with heart failure; I50.9 Heart failure, unspecified; E78.00 Pure hypercholesterolemia, unspecified; J44.9 Chronic obstructive pulmonary disease, unspecified; M10.9 Gout, unspecified; E11.9 Type 2 diabetes mellitus without complications; E66.9 Obesity, unspecified; Z68.30 Body mass index [BMI] 30.0-30.9, adult; Z79.82 Long term (current) use of aspirin; Z79.84 Long term (current) use of oral hypoglycemic drugs; Z79.899 Other long term (current) drug therapy; Z20.822 Contact with and (suspected) exposure to COVID-19
CPT/HCPCS: 0241U; 36415; 80053; 81001; 83880; 84145; 84484; 85025; 93005; 99285

== ENCOUNTER 2021-12-16 00:38 | Emergency (ER) | payer MEDICARE ==
[2021-12-16 00:46] VITALS: BP 139/71; PULSE 94
[2021-12-16 02:04] LABS: CORONAVIRUS COVID-19 NAA NEGATIVE (NEGATIVE)
== END 2021-12-16 02:57 | disposition home or self-care (01) ==
LOC: JP.ED 00:38
DX: J44.9 Chronic obstructive pulmonary disease, unspecified (principal); I87.2 Venous insufficiency (chronic) (peripheral); I11.0 Hypertensive heart disease with heart failure; I50.9 Heart failure, unspecified; F10.10 Alcohol abuse, uncomplicated; R53.1 Weakness; D69.6 Thrombocytopenia, unspecified; E87.1 Hypo-osmolality and hyponatremia; E11.9 Type 2 diabetes mellitus without complications; M10.9 Gout, unspecified; F17.210 Nicotine dependence, cigarettes, uncomplicated; E66.9 Obesity, unspecified; Z79.899 Other long term (current) drug therapy; Z20.822 Contact with and (suspected) exposure to COVID-19; Z68.29 Body mass index [BMI] 29.0-29.9, adult
CPT/HCPCS: 0241U; 36415; 71046; 80048; 80307; 81001; 83880; 84145; 85025; 86140; 93005; 93010; 99283; 99285

== ENCOUNTER 2022-02-07 08:48 | Emergency (ER) | payer MEDICARE ==
[2022-02-07 09:09] VITALS: BP 139/75; PULSE 110
[2022-02-07] MEDS ORDERED: predniSONE 20 MG Tab PO ONE (09:24)
[2022-02-07] MEDS ORDERED: Doxycycline 100 MG Cap PO ONE (09:24)
== END 2022-02-07 10:00 | disposition home or self-care (01) ==
LOC: JP.ED 08:48
DX: J44.1 Chronic obstructive pulmonary disease with (acute) exacerbation (principal); I11.0 Hypertensive heart disease with heart failure; I50.9 Heart failure, unspecified; E11.9 Type 2 diabetes mellitus without complications; F17.210 Nicotine dependence, cigarettes, uncomplicated; E66.9 Obesity, unspecified; Z68.28 Body mass index [BMI] 28.0-28.9, adult; Z79.899 Other long term (current) drug therapy; Z79.84 Long term (current) use of oral hypoglycemic drugs; Z90.49 Acquired absence of other specified parts of digestive tract; Z20.822 Contact with and (suspected) exposure to COVID-19
CPT/HCPCS: 99284; A9270; J7512; U0002

== ENCOUNTER 2022-11-09 05:44 | Emergency (ER) | payer MEDICARE ==
[2022-11-09] MEDS ORDERED: Nitroglycerin 0.4 MG Tab.SL SL PRN (06:02)
[2022-11-09] MEDS ORDERED: Furosemide 40 MG/4 ML VIAL IVPUSH ONE (06:03)
[2022-11-09 06:09] LABS: BASOPHILS ABSOLUTE AUTO 0.03 K/uL (0.00-0.10); BASOPHILS PERCENT AUTO 0.2 % (0.1-1.3); HEMATOCRIT 50.2 % (38.4-49.7); HEMOGLOBIN 17.2 g/dL (12.9-16.9); IMMATURE GRAN ABSOLUTE AUTO 0.08 K/uL (0.00-0.23); IMMATURE GRAN PERCENT AUTO 0.6 % (0.0-0.7); LYMPHOCYTES ABSOLUTE AUTO 0.59 K/uL (0.8-3.3); LYMPHOCYTES PERCENT AUTO 4.5 % (11.4-47.7); MEAN CORPUSCULAR HEMOGLOBIN 33.9 pg (31.6-35.5); MEAN CORPUSCULAR HGB CONC 34.3 g/dL (31.6-35.5); MONOCYTES ABSOLUTE AUTO 1.06 K/uL (0.20-0.90); MONOCYTES PERCENT AUTO 8.1 % (3.3-12.6); NEUTROPHILS ABSOLUTE AUTO 11.26 K/uL (1.0-7.6); NEUTROPHILS PERCENT AUTO 86.6 % (40.0-78.1); PLATELET COUNT,PLT 101 K/uL (130-375); RED BLOOD CELL COUNT 5.07 M/uL (4.14-5.76)
[2022-11-09] MEDS ORDERED: Metoprolol Tartrate 5 MG/5 ML SDV IVPUSH ONE (06:09)
[2022-11-09] MEDS: Sodium Chloride 0.9% 10 ML Syringe FLUSH PRN ×2 (06:18→07:32)
[2022-11-09] MEDS ORDERED: Iopamidol 612 MG/ML 100 ML Bottle IV STA (06:23)
[2022-11-09] MEDS ORDERED: Sodium Chloride 0.9% 50 ML IV STA (06:24)
[2022-11-09 06:28] LABS: ALANINE AMINOTRANSFERASE,ALT 26 U/L (12-78); ALBUMIN 3.4 g/dL (3.4-5.0); ALKALINE PHOSPHATASE 95 U/L (46-116); ASPARTATE AMNIOTRANSFERASE,AST 39 U/L (15-37); BILIRUBIN TOTAL 1.4 mg/dL (0.2-1.0); BLOOD UREA NITROGEN,BUN 27 mg/dL (7-18); CALCIUM 9.2 mg/dL (8.5-10.1); CARBON DIOXIDE,CO2 25 mmol/L (21-32); CHLORIDE,CL 94 mmol/L (100-108); EST CRCL DRUG DOSING (CG) 72.21 mL/min; ESTIMATED GFR 79 mL/min (>60); GLUCOSE RANDOM 102 mg/dL (74-106); POTASSIUM,K 4.7 mmol/L (3.6-5.2); PRO B-TYPE NATRIUR PEPT,BNPPRO 191 pg/mL (5-125); PROTEIN TOTAL,TP 6.9 g/dL (6.4-8.2); SODIUM,NA 133 mmol/L (140-148); TROPONIN I HIGH SENSITIVITY 46.1 pg/mL (<=60.3)
[2022-11-09 06:30] LABS: ANION GAP 18.7 mmol/L (5.0-14.0)
[2022-11-09 06:54] LABS: BASE EXCESS ARTERIAL -3.9 mm/L; BICARBONATE,ARTERIAL 18.7 mmol/L (22.0-26.0); CARBOXYHEMOGLOBIN 4.4 % (0.0-1.6); O2 SATURATION ARTERIAL 98.2 % (95.0-98.0); OXYHEMOGLOBIN 92.9 %; PCO2 ARTERIAL 29.8 mmHg (35.0-42.0); TOTAL HEMOGLOBIN 18.1 g/dL (13.5-18.0)
[2022-11-09] MEDS ORDERED: cefTRIAXone 2 GM in Sodium Chloride 0.9% 100 ML IV SCH (07:00)
[2022-11-09] MEDS ORDERED: Lactated Ringers 1,000 ML IV SCH (07:00)
[2022-11-09 07:01] LABS: APPEARANCE,URINE CLEAR (CLEAR); BILIRUBIN,URINE SMALL (NEGATIVE); COLOR,URINE YELLOW (YELLOW); GLUCOSE,URINE NEGATIVE (NEGATIVE); KETONES,URINE 40 mg/dL (NEGATIVE); LEUKOCYTE ESTERASE,URINE NEGATIVE (NEGATIVE); NITRITE,URINE NEGATIVE (NEGATIVE); OCCULT BLOOD,URINE TRACE-INTACT (NEGATIVE); PROTEIN,URINE 100 mg/dL (NEGATIVE); UROBILINOGEN,URINE 0.2 EU/dL (0.2-1.0)
[2022-11-09 07:07] LABS: AMORPHOUS SEDIMENT,URINE FEW; BACTERIA,URINE FEW; EPITHELIAL CELLS,URINE RARE; MUCUS,URINE NOT SEEN; RBC,URINE 0-5 (0-5); WBC,URINE 0-5 (0-5)
[2022-11-09] MEDS ORDERED: Doxycycline 200 MG in Sodium Chloride 0.9% 250 ML IV ONE (07:37)
[2022-11-09] MEDS ORDERED: LORazepam 2 MG/ML SDV IVPUSH ONE (08:47)
[2022-11-09] MEDS ORDERED: Sodium Chloride 0.9% 1,000 ML IV SCH (09:15)
[2022-11-09 10:09] VITALS: BP 168/43; PULSE 125
== END 2022-11-09 10:23 ==
LOC: JP.ED 05:44
DX: S22.31XA Fracture of one rib, right side, initial encounter for closed fracture (principal); J18.9 Pneumonia, unspecified organism; F10.20 Alcohol dependence, uncomplicated; Z79.899 Other long term (current) drug therapy; Z79.84 Long term (current) use of oral hypoglycemic drugs; Z20.822 Contact with and (suspected) exposure to COVID-19
CPT/HCPCS: 36415; 36600; 71260; 74177; 80053; 80307; 81001; 82803; 83605; 83880; 84145; 84484; 85025; 86140; 87040; 93005; 96361; 96365; 96366; 96375; 99285; J0696; J1940; J2060; J3490; J7030; J7050; J7120; Q9967; U0002

== ENCOUNTER 2022-11-20 04:41 | Emergency (ER) | payer MEDICARE ==
[2022-11-20 04:55] VITALS: BP 120/64; PULSE 88
[2022-11-20 05:43] LABS: BASOPHILS ABSOLUTE AUTO 0.07 K/uL (0.00-0.10); BASOPHILS PERCENT AUTO 0.7 % (0.1-1.3); EOSINOPHILS ABSOLUTE AUTO 0.12 K/uL (0.00-0.40); EOSINOPHILS PERCENT AUTO 1.3 % (0.0-5.4); HEMATOCRIT 46.7 % (38.4-49.7); HEMOGLOBIN 16.1 g/dL (12.9-16.9); IMMATURE GRAN ABSOLUTE AUTO 0.12 K/uL (0.00-0.23); IMMATURE GRAN PERCENT AUTO 1.3 % (0.0-0.7); LYMPHOCYTES ABSOLUTE AUTO 1.39 K/uL (0.8-3.3); LYMPHOCYTES PERCENT AUTO 14.5 % (11.4-47.7); MEAN CORPUSCULAR HEMOGLOBIN 33.8 pg (31.6-35.5); MEAN CORPUSCULAR HGB CONC 34.5 g/dL (31.6-35.5); MEAN CORPUSCULAR VOLUME 98.1 fL (81.4-99.0); MONOCYTES ABSOLUTE AUTO 0.64 K/uL (0.20-0.90); MONOCYTES PERCENT AUTO 6.7 % (3.3-12.6); NEUTROPHILS ABSOLUTE AUTO 7.22 K/uL (1.0-7.6); NEUTROPHILS PERCENT AUTO 75.5 % (40.0-78.1); PLATELET COUNT,PLT 304 K/uL (130-375); RED BLOOD CELL COUNT 4.76 M/uL (4.14-5.76); WHITE BLOOD CELL COUNT,WBC 9.6 K/uL (3.2-11.0)
[2022-11-20 06:04] LABS: A/G RATIO 0.9 (1.2-2.2); ALANINE AMINOTRANSFERASE,ALT 39 U/L (12-78); ALBUMIN 3.3 g/dL (3.4-5.0); ALKALINE PHOSPHATASE 110 U/L (46-116); ASPARTATE AMNIOTRANSFERASE,AST 25 U/L (15-37); BILIRUBIN TOTAL 0.8 mg/dL (0.2-1.0); BLOOD UREA NITROGEN,BUN 13 mg/dL (7-18); CALCIUM 9.4 mg/dL (8.5-10.1); CARBON DIOXIDE,CO2 29 mmol/L (21-32); CHLORIDE,CL 95 mmol/L (100-108); CREATININE 0.7 mg/dL (0.8-1.3); EST CRCL DRUG DOSING (CG) 103.16 mL/min; ESTIMATED GFR 97 mL/min (>60); GLUCOSE RANDOM 111 mg/dL (74-106); POTASSIUM,K 3.9 mmol/L (3.6-5.2); SODIUM,NA 133 mmol/L (140-148)
[2022-11-20 06:05] LABS: ANION GAP 12.9 mmol/L (5.0-14.0)
== END 2022-11-20 06:43 | disposition home or self-care (01) ==
LOC: JP.ED 04:41
DX: J44.1 Chronic obstructive pulmonary disease with (acute) exacerbation (principal); R09.02 Hypoxemia; I11.0 Hypertensive heart disease with heart failure; I50.9 Heart failure, unspecified; E78.00 Pure hypercholesterolemia, unspecified; E11.9 Type 2 diabetes mellitus without complications; E66.9 Obesity, unspecified; Z68.30 Body mass index [BMI] 30.0-30.9, adult; Z87.891 Personal history of nicotine dependence; Z79.899 Other long term (current) drug therapy; Z79.84 Long term (current) use of oral hypoglycemic drugs
CPT/HCPCS: 36415; 71045; 71045-26; 80053; 83605; 83880; 84145; 85025; 99285